=== PATIENT | female | born 1995 | race American Indian/Alaskan Native ===

== ENCOUNTER 2016-11-10 11:36 | Emergency (ER) | payer MEDICAID, OTHER ==
--- NOTE | 2016-11-10 12:00 | ED PDOC ---
Arrival/HPI - General Historian: Patient - History of Present Illness Time/Duration: 24 hours (Last night) Symptom Onset: Other Symptom Course: Other Activities at Onset: Emotional Upset (In heated arguement with ) Context: Home <Suman Bowie - Last Filed: 11/10/16 18:27> <Hitesh Kinney - Last Filed: 11/10/16 21:02> - General Chief Complaint: Medical Clearance Time Seen by Provider: 11/10/16 11:53 - History of Present Illness Narrative History of Present Illness (Text): 11/10/16 12:01 A 21 year old female, denies any past medical history, presents to the emergency department for expressed suicidal ideation from last night after a verbal altercation with her and the police were called. Her states that she allegedly wanted to hurt herself during the heated argument. The patient currently states that she has no suicidal or homicidal ideation. (Suman Bowie) Past Medical History - Provider Review Nursing Documentation Reviewed: Yes - Cardiac Hx Cardiac Disorders: No - Pulmonary Hx Respiratory Disorders: No - Neurological Hx Neurological Disorder: No - HEENT Hx HEENT Disorder: No - Renal Hx Renal Disorder: No - Endocrine/Metabolic Hx Endocrine Disorders: No - Hematological/Oncological Hx Blood Disorders: No - Integumentary Hx Dermatological Disorder: No - Musculoskeletal/Rheumatological Hx Musculoskeletal Disorders: No - Gastrointestinal Hx Gastrointestinal Disorders: No - Genitourinary/Gynecological Hx Genitourinary Disorders: No - Psychiatric Hx Psychophysiologic Disorder: Yes Hx Depression: Yes (no longer on meds) Hx Substance Use: No <Suman Bowie - Last Filed: 11/10/16 18:27> Family/Social History - Physician Review Nursing Documentation Reviewed: Yes Family/Social History: No Known Family HX, Unknown Family HX Smoking Status: Never Smoked Hx Alcohol Use: Yes Frequency of alcohol use: Socially Hx Substance Use: No <Suman Bowie - Last Filed: 11/10/16 18:27> Allergies/Home Meds <Suman Bowie - Last Filed: 11/10/16 18:27> <Hitesh Kinney - Last Filed: 11/10/16 21:02> Allergies/Adverse Reactions: Allergies No Known Allergies Allergy (Verified 11/10/16 11:41) Home Medications: Home Meds Medication Instructions Recorded Confirmed Levonorgestrel-Ethin Estradiol 1 tab PO DAILY 11/10/16 11/10/16 [Aviane 0.02 mg-0.1 mg] Review of Systems - Physician Review All systems were reviewed & negative as marked: Yes <JaneyhongSuman - Last Filed: 11/10/16 18:27> Physical Exam Vital Signs Reviewed: Yes Temperature: Afebrile Blood Pressure: Normal Pulse: Regular Respiratory Rate: Normal Appearance: Positive for: Well-Appearing, Non-Toxic, Comfortable Pain Distress: None Mental Status: Positive for: Alert and Oriented X 3 <Suman Bowie - Last Filed: 11/10/16 18:27> <Hitesh Kinney - Last Filed: 11/10/16 21:02> - Physical Exam Narrative Physical Exam (Text): 11/10/16 12:05 - Review of Systems Constitutional: Normal. absent: Fatigue, Weight Change, Fevers Eyes: Normal ENT: Normal Respiratory: Normal absent: SOB, Cough, Sputum Cardiovascular: Normal absent: Chest pain, Palpitations, Syncope Gastrointestinal: Normal absent: Abdominal pain, Diarrhea, Nausea, Vomiting Genitourinary: Normal. absent: Dysuria, Frequency, Hematuria Musculoskeletal: Normal. absent: Arthralgias, Back Pain, Neck Pain Skin: Normal Neurological: Normal absent: Focal Weakness Endocrine: Normal Hemo/Lymphatic: Normal Psychiatric: Normal - Physical exam Patient appears age appropriate, speaking full sentences without difficulty - Systems Exam Head: Present: Atraumatic, Normocephalic Pupils: Present: PERRL Extraocular Muscles: Present: EOMI Conjunctiva: Present: Normal Mouth: Present: Moist Mucous Membranes Neck: Present: Normal Range of Motion. No: MIDLINE TENDERNESS, Paraspinal Tenderness Respiratory/Chest: Present: Clear to Auscultation, Good Air Exchange. No: Respiratory Distress, Accessory Muscle Use, Tachypnic Cardiovascular: Present: Regular Rate and Rhythm, Normal S1, S2, Peripheral Pulses Present. No: Murmurs Abdomen: Present: Normal Bowel Sounds, No: Tenderness, Peritoneal Signs, Rebound, Guarding, Distention Back: Present: Normal Inspection. No: Midline Tenderness, Paraspinal Tenderness Upper Extremity: Present: Normal Inspection. No: Cyanosis, Edema Lower Extremity: Present: Normal Inspection. No: Edema Neurological: Present: GCS=15, Speech Normal, cranial nerves II through XII fully intact with no cerebellar abnormality, neuro-sensory fully intact. No focal neurological deficits. Skin: Present: Warm, Dry, Normal Color. No: Rashes Lymphatic: Present: OX3, NI, NC Psychiatric: Present: Alert, Oriented x 3, Normal Insight, Normal Concentration (Suman Bowie) Vital Signs Temp Pulse Resp BP Pulse Ox 11/10/16 14:03 98.3 F 78 16 107/59 L 100 11/10/16 11:42 99.5 F 88 20 107/73 99 Medical Decision Making - Lab Interpretations I have reviewed the lab results: Yes - RAD Interpretation Reference And Instruction Librarian: Radiologist <Suman Bowie - Last Filed: 11/10/16 18:27> <Hitesh Kinney - Last Filed: 11/10/16 21:02> ED Course and Treatment: 11/10/16 12:06 Impression: A 21 year old female who expressed suicidal ideation last night during a verbal altercation with her . Plan: -- Labs -- Xanax -- Urinalysis -- Reassess and disposition Prior Visits: Notes and results from previous visits were reviewed. Patient was last seen in the emergency department on 06/14/11 for knee injury. Progress Notes: 11/10/16 13:24 Patient was evaluated by [facility] screener and needs to be evaluated by [place] screener. 11/10/16 14:05 EKG: Ordered, reviewed, and independently interpreted the EKG. Rate : 76 BPM Rhythm : NSR Interpretation : No ST-segment elevations, normal intervals. Interpreted by me. 11/10/16 16:50 pt in no distress, denies complaints. 11/10/16 18:[address] Kinney in stable condition, pending [place] evaluation pt in no distress at this time UA with possible UTI pt denies any symptoms abx held Urine culture ordered (Suman Bowie) 11/10/16 20:55 Patient endorsed to me by Dr. Bowie for [facility] screen - she was seen by [facility] and accepted for [facility] screen. (Hitesh Kinney) - Lab Interpretations Lab Results: 11/10/16 12:55 11/10/16 12:55 Lab Results 11/10/16 12:55: Urine Opiates Screen Negative, Urine Methadone Screen Negative, Ur Barbiturates Screen Negative, Ur Phencyclidine Scrn Negative, Ur Amphetamines Screen Negative, U Benzodiazepines Scrn Negative, U Oth Cocaine Metabols Negative, U Cannabinoids Screen Negative 11/10/16 12:55: Alcohol, Quantitative < 10 11/10/16 12:55: Salicylates < 1 L, Acetaminophen < 10.0 L 11/10/16 12:55: Sodium 138, Potassium 3.8, Chloride 104, Carbon Dioxide 24, Anion Gap 14, BUN 7, Creatinine 0.6, Est GFR ( Amer) > 60, Est GFR (Non- Af Amer) > 60, Random Glucose 83, Calcium 9.2, Total Bilirubin 0.5, AST 22, ALT 22, Alkaline Phosphatase 76, Total Protein 7.1, Albumin 4.0, Globulin 3.2, Albumin/Globulin Ratio 1.3 11/10/16 12:55: Urine Color Yellow, Urine Appearance Sl cloudy, Urine pH 6.0, Ur Specific [place] >= 1.030, Urine Protein Trace H, Urine Glucose (UA) Negative , Urine Ketones Trace H, Urine Blood Large H, Urine Nitrate Negative, Urine Bilirubin Negative, Urine Urobilinogen 0.2, Ur Leukocyte Esterase Negative, Urine RBC Tntc, Urine WBC 0 - 2, Ur Epithelial Cells 1 - 3, Urine Bacteria Mod 11/10/16 12:55: WBC 8.8, RBC 4.33, Hgb 12.5, Hct 36.8, MCV 85.0, MCH 28.9, MCHC 34.0, RDW 13.3, Plt Count 212, MPV 9.9, Gran % 75.5 H, Lymph % (Auto) 18.8 L, [place] % (Auto) 5.4, Eos % (Auto) 0.1 L, Baso % (Auto) 0.2, Gran # 6.65 H, Lymph # 1.7, [place] # 0.5, Eos # 0.0, Baso # 0.02 - RAD Interpretation Narrative RAD Interpretations (Text): Title Attorney : Dr. Garay, Cornelio PARR Approver2 : Report Date : 11/10/2016 13:57:46 My Comment : HISTORY: med clearance COMPARISON: No prior. FINDINGS: LUNGS: No active pulmonary disease. PLEURA: No significant pleural effusion identified, no pneumothorax apparent. CARDIOVASCULAR: Normal. OSSEOUS STRUCTURES: No significant abnormalities. VISUALIZED UPPER ABDOMEN: Normal. OTHER FINDINGS: None. IMPRESSION: No active disease. (Suman Bowie) Radiology Orders: 11/10/16 13:18 CHEST PORTABLE [RAD] Stat - Medication Orders Current Medication Orders: Discontinued Medications Alprazolam (Xanax) 0.25 mg PO STAT STA PRN Reason: Protocol Stop: 11/10/16 12:01 Last Admin: 11/10/16 13:03 Dose: 0.25 mg - PA / PLY CUTTER / Resident Statement MD/DO has reviewed & agrees with the documentation as recorded. - Scribe Statement The provider has reviewed the documentation as recorded by the Scribe <Suman Bowie - Last Filed: 11/10/16 18:27> <Hitesh Kinney - Last Filed: 11/10/16 21:02> - Scribe Statement Rula Rios Provider Scribe Attestation: All medical record entries made by the Scribe were at my direction and personally dictated by me. I have reviewed the chart and agree that the record accurately reflects my personal performance of the history, physical exam, medical decision making, and the department course for this patient. I have also personally directed, reviewed, and agree with the discharge instructions and disposition.] (Suman Bowie) Disposition/Present on Arrival - Present on Arrival Any Indicators Present on Arrival: No History of DVT/PE: No History of Uncontrolled Diabetes: No Urinary Catheter: No History of Decub. Ulcer: No History Surgical Site Infection Following: None - Disposition Have Diagnosis and Disposition been Completed?: Yes <Suman Bowie - Last Filed: 11/10/16 18:27> - Disposition Disposition Time: 21:00 Patient Plan: Transfer To ([facility]) <Hitesh Kinney - Last Filed: 11/10/16 21:02> - Disposition Diagnosis: Medical clearance for psychiatric admission, Suicidal ideation Disposition: Transfer [facility] Patient Problems: Current Active Problems Problem Status Onset Medical clearance for psychiatric admission Acute Condition: STABLE Forms: [employer] (Faroese)
[2016-11-10 13:10] LABS: BASO # 0.02 K/mm3 (0.0-2.0); BASO % 0.2 % (0.0-3.0); EOS % 0.1 % (1.5-5.0); GRAN # 6.65 (1.4-6.5); GRAN % 75.5 % (50.0-68.0); HEMOGLOBIN 12.5 gm/dL (12.0-16.0); LYMPH # 1.7 (1.2-3.4); LYMPH % 18.8 % (22.0-35.0); MEAN CORPUSCULAR HEMOGLOBIN 28.9 pg (25.0-35.0); MEAN PLATELET VOLUME 9.9 fl (7.0-11.0); MONO # 0.5 (0.1-0.6); MONO % 5.4 % (1.0-6.0); PLATELET COUNT 212 10^3/uL (120.0-450.0); RBC 4.33 10^6/uL (3.5-6.1); RED CELL DISTRIBUTION WIDTH 13.3 % (11.5-14.5); URINE BILIRUBIN NEGATIVE (NEGATIVE); URINE BLOOD LARGE (NEGATIVE); URINE GLUCOSE (UA) NEGATIVE (NEGATIVE); URINE LEUKOCYTE ESTERASE NEGATIVE Leu/uL (NEGATIVE); URINE NITRATE NEGATIVE (NEGATIVE); URINE PROTEIN TRACE mg/dL (<30 mg/dL); URINE UROBILINOGEN 0.2 E.U./dL (<1 E.U./dL); WHITE BLOOD COUNT 8.8 10^3/ul (4.5-11.0)
[2016-11-10 13:14] LABS: URINE APPEARANCE SL CLOUDY (CLEAR); URINE COLOR YELLOW (YELLOW)
[2016-11-10 13:17] LABS: URINE BACTERIA MOD (NEG); URINE RBC TNTC /hpf (0-2); URINE WBC 0 - 2 /hpf (0-6)
[2016-11-10 13:22] LABS: ALB/GLOB RATIO 1.3 (1.1-1.8); ALT/SGPT 22 U/L (7-56); AST/SGOT 22 U/L (15-39); BLOOD UREA NITROGEN 7 mg/dL (7-21); CALCIUM 9.2 mg/dL (8.4-10.5); GFR AFRICAN-AMERICAN > 60; GFR NON-AFRICAN AMERICAN > 60
[2016-11-10 13:31] LABS: BARBITURATES, UR NEGATIVE (NEGATIVE); BENZODIAZEPINES, UR NEGATIVE (NEGATIVE); OPIATES, UR NEGATIVE (NEGATIVE); PHENCYCLIDINE, UR NEGATIVE (NEGATIVE)
[2016-11-10 13:34] LABS: SALICYLATE < 1 mg/dL (2.0-20.0)
[2016-11-10 13:37] LABS: ACETAMINOPHEN < 10.0 ug/ml (10.0-20.0)
--- NOTE | 2016-11-10 13:59 | RAD ---
HISTORY: med clearance COMPARISON: No prior. FINDINGS: LUNGS: No active pulmonary disease. PLEURA: No significant pleural effusion identified, no pneumothorax apparent. CARDIOVASCULAR: Normal. OSSEOUS STRUCTURES: No significant abnormalities. VISUALIZED UPPER ABDOMEN: Normal. OTHER FINDINGS: None. IMPRESSION: No active disease.
--- NOTE | 2016-11-11 00:15 | ED PDOC ---
Physical Exam Vital Signs Reviewed: Yes Vital Signs Temp Pulse Resp BP Pulse Ox 11/10/16 23:37 98.4 F 72 16 97/57 L 100 11/10/16 14:03 98.3 F 78 16 107/59 L 100 11/10/16 11:42 99.5 F 88 20 107/73 99 Temperature: Afebrile Blood Pressure: Normal Pulse: Regular Respiratory Rate: Normal Appearance: Positive for: Well-Appearing, Non-Toxic, Comfortable Pain Distress: None Mental Status: Positive for: Alert and Oriented X 3 Medical Decision Making ED Course and Treatment: 11/10/16 23:00 Case endorsed to me by Dr. Kinney, pending [facility] bed availability, pt accepted on transfer. 11/11/16 07:00 Pt in stable condition. Case endorsed to Dr. Duncan, pending [facility] bed availability for transfer. - Lab Interpretations Lab Results: 11/10/16 12:55 11/10/16 12:55 Lab Results 11/10/16 12:55: Urine Opiates Screen Negative, Urine Methadone Screen Negative, Ur Barbiturates Screen Negative, Ur Phencyclidine Scrn Negative, Ur Amphetamines Screen Negative, U Benzodiazepines Scrn Negative, U Oth Cocaine Metabols Negative, U Cannabinoids Screen Negative 11/10/16 12:55: Alcohol, Quantitative < 10 11/10/16 12:55: Salicylates < 1 L, Acetaminophen < 10.0 L 11/10/16 12:55: Sodium 138, Potassium 3.8, Chloride 104, Carbon Dioxide 24, Anion Gap 14, BUN 7, Creatinine 0.6, Est GFR ( Amer) > 60, Est GFR (Non- Af Amer) > 60, Random Glucose 83, Calcium 9.2, Total Bilirubin 0.5, AST 22, ALT 22, Alkaline Phosphatase 76, Total Protein 7.1, Albumin 4.0, Globulin 3.2, Albumin/Globulin Ratio 1.3 11/10/16 12:55: Urine Color Yellow, Urine Appearance Sl cloudy, Urine pH 6.0, Ur Specific [place] >= 1.030, Urine Protein Trace H, Urine Glucose (UA) Negative , Urine Ketones Trace H, Urine Blood Large H, Urine Nitrate Negative, Urine Bilirubin Negative, Urine Urobilinogen 0.2, Ur Leukocyte Esterase Negative, Urine RBC Tntc, Urine WBC 0 - 2, Ur Epithelial Cells 1 - 3, Urine Bacteria Mod 11/10/16 12:55: WBC 8.8, RBC 4.33, Hgb 12.5, Hct 36.8, MCV 85.0, MCH 28.9, MCHC 34.0, RDW 13.3, Plt Count 212, MPV 9.9, Gran % 75.5 H, Lymph % (Auto) 18.8 L, [place] % (Auto) 5.4, Eos % (Auto) 0.1 L, Baso % (Auto) 0.2, Gran # 6.65 H, Lymph # 1.7, [place] # 0.5, Eos # 0.0, Baso # 0.02 - RAD Interpretation Radiology Orders: 11/10/16 13:18 CHEST PORTABLE [RAD] Stat - Medication Orders Current Medication Orders: Discontinued Medications Alprazolam (Xanax) 0.25 mg PO STAT STA PRN Reason: Protocol Stop: 11/10/16 12:01 Last Admin: 11/10/16 13:03 Dose: 0.25 mg Disposition/Present on Arrival - Present on Arrival Any Indicators Present on Arrival: No History of DVT/PE: No History of Uncontrolled Diabetes: No Urinary Catheter: No History of Decub. Ulcer: No History Surgical Site Infection Following: None - Disposition Have Diagnosis and Disposition been Completed?: Yes Diagnosis: Medical clearance for psychiatric admission, Suicidal ideation Disposition: Trans to Other Acute Care Hosp Disposition Time: 07:00 Condition: STABLE Forms: [employer] (Yoruba)
--- NOTE | 2016-11-11 07:33 | ED PDOC ---
Physical Exam Vital Signs Reviewed: Yes Vital Signs Temp Pulse Resp BP Pulse Ox 11/11/16 07:31 98.2 F 62 16 100/41 L 100 11/11/16 05:30 98.2 F 62 16 98/56 L 100 11/11/16 03:40 98.3 F 68 16 100/56 L 100 11/11/16 01:40 98.3 F 70 16 100/58 L 100 11/10/16 23:37 98.4 F 72 16 97/57 L 100 11/10/16 14:03 98.3 F 78 16 107/59 L 100 11/10/16 11:42 99.5 F 88 20 107/73 99 Temperature: Afebrile Blood Pressure: Normal Pulse: Regular Respiratory Rate: Normal Medical Decision Making ED Course and Treatment: 11/11/16 07:32 Case endorsed to me by Dr. Cerna, pending [facility] bed availability for transfer. 11/11/16 21:01 ed course during day, uneventful, pending bed avail at [facility] endorsed to parts clerk plant maintenance - Lab Interpretations Lab Results: 11/10/16 12:55 11/10/16 12:55 Lab Results 11/10/16 12:55: Urine Opiates Screen Negative, Urine Methadone Screen Negative, Ur Barbiturates Screen Negative, Ur Phencyclidine Scrn Negative, Ur Amphetamines Screen Negative, U Benzodiazepines Scrn Negative, U Oth Cocaine Metabols Negative, U Cannabinoids Screen Negative 11/10/16 12:55: Alcohol, Quantitative < 10 11/10/16 12:55: Salicylates < 1 L, Acetaminophen < 10.0 L 11/10/16 12:55: Sodium 138, Potassium 3.8, Chloride 104, Carbon Dioxide 24, Anion Gap 14, BUN 7, Creatinine 0.6, Est GFR ( Amer) > 60, Est GFR (Non- Af Amer) > 60, Random Glucose 83, Calcium 9.2, Total Bilirubin 0.5, AST 22, ALT 22, Alkaline Phosphatase 76, Total Protein 7.1, Albumin 4.0, Globulin 3.2, Albumin/Globulin Ratio 1.3 11/10/16 12:55: Urine Color Yellow, Urine Appearance Sl cloudy, Urine pH 6.0, Ur Specific [place] >= 1.030, Urine Protein Trace H, Urine Glucose (UA) Negative , Urine Ketones Trace H, Urine Blood Large H, Urine Nitrate Negative, Urine Bilirubin Negative, Urine Urobilinogen 0.2, Ur Leukocyte Esterase Negative, Urine RBC Tntc, Urine WBC 0 - 2, Ur Epithelial Cells 1 - 3, Urine Bacteria Mod 11/10/16 12:55: WBC 8.8, RBC 4.33, Hgb 12.5, Hct 36.8, MCV 85.0, MCH 28.9, MCHC 34.0, RDW 13.3, Plt Count 212, MPV 9.9, Gran % 75.5 H, Lymph % (Auto) 18.8 L, [place] % (Auto) 5.4, Eos % (Auto) 0.1 L, Baso % (Auto) 0.2, Gran # 6.65 H, Lymph # 1.7, [place] # 0.5, Eos # 0.0, Baso # 0.02 - RAD Interpretation Radiology Orders: 11/10/16 13:18 CHEST PORTABLE [RAD] Stat - Medication Orders Current Medication Orders: Discontinued Medications Alprazolam (Xanax) 0.25 mg PO STAT STA PRN Reason: Protocol Stop: 11/10/16 12:01 Last Admin: 11/10/16 13:03 Dose: 0.25 mg Disposition/Present on Arrival - Present on Arrival Any Indicators Present on Arrival: No History of DVT/PE: No History of Uncontrolled Diabetes: No Urinary Catheter: No History of Decub. Ulcer: No History Surgical Site Infection Following: None - Disposition Have Diagnosis and Disposition been Completed?: Yes Diagnosis: Medical clearance for psychiatric admission, Suicidal ideation Disposition: Transfer [facility] Disposition Time: 07:00 Patient Problems: Current Active Problems Problem Status Onset Medical clearance for psychiatric admission Acute Suicidal ideation Acute Condition: STABLE Forms: [employer] (Yakut)
--- NOTE | 2016-11-11 20:48 | ED PDOC ---
Physical Exam Vital Signs Reviewed: Yes Vital Signs Temp Pulse Resp BP Pulse Ox 11/12/16 03:00 77 18 102/76 100 11/11/16 23:00 78 18 118/64 100 11/11/16 19:00 98.4 F 76 18 112/52 L 100 11/11/16 17:00 99.0 F 77 17 99/60 L 99 11/11/16 13:00 98.1 F 86 16 110/68 99 11/11/16 11:00 98.5 F 86 17 111/57 L 98 11/11/16 09:00 97.5 F L 86 17 111/64 99 11/11/16 07:31 98.2 F 62 16 100/41 L 100 11/11/16 05:30 98.2 F 62 16 98/56 L 100 11/11/16 03:40 98.3 F 68 16 100/56 L 100 11/11/16 01:40 98.3 F 70 16 100/58 L 100 11/10/16 23:37 98.4 F 72 16 97/57 L 100 11/10/16 14:03 98.3 F 78 16 107/59 L 100 11/10/16 11:42 99.5 F 88 20 107/73 99 Temperature: Afebrile Blood Pressure: Normal Pulse: Regular Respiratory Rate: Normal Appearance: Positive for: Well-Appearing, Non-Toxic, Comfortable Pain Distress: None Mental Status: Positive for: Alert and Oriented X 3 Medical Decision Making ED Course and Treatment: 11/11/16 19:00 Case signed out to me by Dr. Duncan, Pending [facility] bed availability for transfer. 11/12/16 07:00 Patient in stable condition. Case signed out to pending [facility] bed availability for psych transfer. - Lab Interpretations Lab Results: 11/10/16 12:55 11/10/16 12:55 Lab Results 11/10/16 12:55: Urine Opiates Screen Negative, Urine Methadone Screen Negative, Ur Barbiturates Screen Negative, Ur Phencyclidine Scrn Negative, Ur Amphetamines Screen Negative, U Benzodiazepines Scrn Negative, U Oth Cocaine Metabols Negative, U Cannabinoids Screen Negative 11/10/16 12:55: Alcohol, Quantitative < 10 11/10/16 12:55: Salicylates < 1 L, Acetaminophen < 10.0 L 11/10/16 12:55: Sodium 138, Potassium 3.8, Chloride 104, Carbon Dioxide 24, Anion Gap 14, BUN 7, Creatinine 0.6, Est GFR ( Amer) > 60, Est GFR (Non- Af Amer) > 60, Random Glucose 83, Calcium 9.2, Total Bilirubin 0.5, AST 22, ALT 22, Alkaline Phosphatase 76, Total Protein 7.1, Albumin 4.0, Globulin 3.2, Albumin/Globulin Ratio 1.3 11/10/16 12:55: Urine Color Yellow, Urine Appearance Sl cloudy, Urine pH 6.0, Ur Specific [place] >= 1.030, Urine Protein Trace H, Urine Glucose (UA) Negative , Urine Ketones Trace H, Urine Blood Large H, Urine Nitrate Negative, Urine Bilirubin Negative, Urine Urobilinogen 0.2, Ur Leukocyte Esterase Negative, Urine RBC Tntc, Urine WBC 0 - 2, Ur Epithelial Cells 1 - 3, Urine Bacteria Mod 11/10/16 12:55: WBC 8.8, RBC 4.33, Hgb 12.5, Hct 36.8, MCV 85.0, MCH 28.9, MCHC 34.0, RDW 13.3, Plt Count 212, MPV 9.9, Gran % 75.5 H, Lymph % (Auto) 18.8 L, [place] % (Auto) 5.4, Eos % (Auto) 0.1 L, Baso % (Auto) 0.2, Gran # 6.65 H, Lymph # 1.7, [place] # 0.5, Eos # 0.0, Baso # 0.02 - RAD Interpretation Radiology Orders: 11/10/16 13:18 CHEST PORTABLE [RAD] Stat - Medication Orders Current Medication Orders: Discontinued Medications Alprazolam (Xanax) 0.25 mg PO STAT STA PRN Reason: Protocol Stop: 11/10/16 12:01 Last Admin: 11/10/16 13:03 Dose: 0.25 mg - Scribe Statement The provider has reviewed the documentation as recorded by the Eloyibe Genesis Garcia Provider Attestation: Provider Scribe Attestation: All medical record entries made by the Eloyibanabela were at my direction and personally dictated by me. I have reviewed the chart and agree that the record accurately reflects my personal performance of the history, physical exam, medical decision making, and the department course for this patient. I have also personally directed, reviewed, and agree with the discharge instructions and disposition. Disposition/Present on Arrival - Present on Arrival Any Indicators Present on Arrival: No History of DVT/PE: No History of Uncontrolled Diabetes: No Urinary Catheter: No History of Decub. Ulcer: No History Surgical Site Infection Following: None - Disposition Have Diagnosis and Disposition been Completed?: Yes Diagnosis: Medical clearance for psychiatric admission, Suicidal ideation Disposition: Trans to Other Acute Care Hosp Disposition Time: 07:00 Condition: STABLE Forms: [employer] (Bolivian)
[2016-11-12 02:22] VITALS: RESP 18
--- NOTE | 2016-11-12 07:07 | ED PDOC ---
Physical Exam Vital Signs Temp Pulse Resp BP Pulse Ox 11/12/16 03:00 77 18 102/76 100 11/11/16 23:00 78 18 118/64 100 11/11/16 19:00 98.4 F 76 18 112/52 L 100 11/11/16 17:00 99.0 F 77 17 99/60 L 99 11/11/16 13:00 98.1 F 86 16 110/68 99 11/11/16 11:00 98.5 F 86 17 111/57 L 98 11/11/16 09:00 97.5 F L 86 17 111/64 99 11/11/16 07:31 98.2 F 62 16 100/41 L 100 11/11/16 05:30 98.2 F 62 16 98/56 L 100 11/11/16 03:40 98.3 F 68 16 100/56 L 100 11/11/16 01:40 98.3 F 70 16 100/58 L 100 11/10/16 23:37 98.4 F 72 16 97/57 L 100 11/10/16 14:03 98.3 F 78 16 107/59 L 100 11/10/16 11:42 99.5 F 88 20 107/73 99 Medical Decision Making ED Course and Treatment: 11/12/16 07:00 Patient signed out to me by Dr. Cerna. Accepted to [facility], pending bed. pt in no distress, denies complaints. - Lab Interpretations Lab Results: 11/10/16 12:55 11/10/16 12:55 Lab Results 11/10/16 12:55: Urine Opiates Screen Negative, Urine Methadone Screen Negative, Ur Barbiturates Screen Negative, Ur Phencyclidine Scrn Negative, Ur Amphetamines Screen Negative, U Benzodiazepines Scrn Negative, U Oth Cocaine Metabols Negative, U Cannabinoids Screen Negative 11/10/16 12:55: Alcohol, Quantitative < 10 11/10/16 12:55: Salicylates < 1 L, Acetaminophen < 10.0 L 11/10/16 12:55: Sodium 138, Potassium 3.8, Chloride 104, Carbon Dioxide 24, Anion Gap 14, BUN 7, Creatinine 0.6, Est GFR ( Amer) > 60, Est GFR (Non- Af Amer) > 60, Random Glucose 83, Calcium 9.2, Total Bilirubin 0.5, AST 22, ALT 22, Alkaline Phosphatase 76, Total Protein 7.1, Albumin 4.0, Globulin 3.2, Albumin/Globulin Ratio 1.3 11/10/16 12:55: Urine Color Yellow, Urine Appearance Sl cloudy, Urine pH 6.0, Ur Specific [place] >= 1.030, Urine Protein Trace H, Urine Glucose (UA) Negative , Urine Ketones Trace H, Urine Blood Large H, Urine Nitrate Negative, Urine Bilirubin Negative, Urine Urobilinogen 0.2, Ur Leukocyte Esterase Negative, Urine RBC Tntc, Urine WBC 0 - 2, Ur Epithelial Cells 1 - 3, Urine Bacteria Mod 11/10/16 12:55: WBC 8.8, RBC 4.33, Hgb 12.5, Hct 36.8, MCV 85.0, MCH 28.9, MCHC 34.0, RDW 13.3, Plt Count 212, MPV 9.9, Gran % 75.5 H, Lymph % (Auto) 18.8 L, [place] % (Auto) 5.4, Eos % (Auto) 0.1 L, Baso % (Auto) 0.2, Gran # 6.65 H, Lymph # 1.7, [place] # 0.5, Eos # 0.0, Baso # 0.02 - RAD Interpretation Radiology Orders: 11/10/16 13:18 CHEST PORTABLE [RAD] Stat - Medication Orders Current Medication Orders: Discontinued Medications Alprazolam (Xanax) 0.25 mg PO STAT STA PRN Reason: Protocol Stop: 11/10/16 12:01 Last Admin: 11/10/16 13:03 Dose: 0.25 mg - Scribe Statement The provider has reviewed the documentation as recorded by the Marbella Munoz Provider Scribe Attestation: All medical record entries made by the Marbella were at my direction and personally dictated by me. I have reviewed the chart and agree that the record accurately reflects my personal performance of the history, physical exam, medical decision making, and the department course for this patient. I have also personally directed, reviewed, and agree with the discharge instructions and disposition. Disposition/Present on Arrival - Present on Arrival Any Indicators Present on Arrival: No History of DVT/PE: No History of Uncontrolled Diabetes: No Urinary Catheter: No History of Decub. Ulcer: No History Surgical Site Infection Following: None - Disposition Diagnosis: Medical clearance for psychiatric admission, Suicidal ideation Disposition: Transfer [facility] Patient Problems: Current Active Problems Problem Status Onset Medical clearance for psychiatric admission Acute Suicidal ideation Acute Condition: STABLE Forms: [employer] (Gabonese)
--- NOTE | 2016-11-12 09:29 | CARD ---
APPROVED REPORT EKG Measurement Heart [id number] <Conclusion> Normal sinus rhythm with sinus arrhythmia Normal ECG
[2016-11-12 13:46] VITALS: BP 104/54; PULSE 64; TEMP 97.8; O2SAT 98
--- NOTE | 2016-11-12 23:23 | CON ---
DATE: 11/12/2016 HISTORY OF PRESENT ILLNESS: The patient is a 21-year-old female, not known triggers, psychiatric history. The patient was brought in for evaluation of suicidal ideation. The patient was screened. At the present moment, the patient is waiting for bed to be available at [facility], the patient was accepted there. The patient was seen briefly today. This financial underwriter explained the treatment plan for the patient and that she is waiting for bed to be available. The patient presented to have flat affect, her voice apathetic. The patient was not willing to talk to this financial underwriter. As per nursing report, the patient still appears to be depressed, at times anxious, but no behavioral disturbances. MEDICATIONS: Reviewed. This financial underwriter will implement trazodone as needed for insomnia and Ativan 0.5 mg 3 times a day as needed for anxiety. PHYSICAL EXAMINATION VITAL SIGNS: Reviewed. MENTAL STATUS EXAMINATION: The patient presented to be sleepy, easily arousable, flat affect. The patient was not willing to talk to his financial underwriter. Said that she is tired of waiting. Speech was monotonic of volume. Thought process seems to be goal directed. Thought content, the patient denied visual, auditory or tactile hallucinations. Denied paranoid ideations. The patient denied thoughts of harming others. The patient stayed quiet when I asked if she wants to kill herself. Insight and judgment are still limited. Impulses are not predictable. LABORATORY DATA: Labs reviewed. Toxicology reviewed. IMPRESSION: Rule out major depressive disorder, rule out adjustment disorder with depressed and anxious mood. PLAN: Continue current management. Continue observation. The patient needs further evaluation and stabilization. The patient was accepted by [facility]. The patient currently is waiting for bed to be available. Thank you very much allowing me to participate in the care of your patient. We will follow up and advise accordingly. Cee Glover MD
== END 2016-11-12 13:59 | disposition short-term general hospital (02) ==
LOC: ED 11:36
DX: R45.851 Suicidal ideations (principal)
CPT/HCPCS: 71010; 80053; 81001; 85025; 87086; 90791; 93005; 99285; G0480

== ENCOUNTER 2017-09-13 07:28 | Emergency (ER) | payer MEDICAID ==
[2017-09-13 07:31] VITALS: BMI 20.9
[2017-09-13] MEDS ORDERED: TDAP Vaccine 0.5 mL Syr IM ONE (09:06)
--- NOTE | 2017-09-13 09:06 | ED PDOC ---
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 states since her last revision of the umbilical piercing ~ 1 year ago, she has noted constant clear-like fluid drainage from the piercing site pt is here for further eval pt's without other complaints PCP: NONE Time/Duration: 1 week Symptom Onset: Gradual Symptom Course: Worsening Activities at Onset: Rest Context: Home Past Medical History - Provider Review Nursing Documentation Reviewed: Yes - Travel History Have you recently traveled outside [place] w/in the past 3 mons?: No - Past History Past History: No Previous - Infectious Disease Hx of Infectious Diseases: None - Reproductive Menopause: No Currently : No - Cardiac Hx Cardiac Disorders: No - Pulmonary Hx Respiratory Disorders: No - Neurological Hx Neurological Disorder: No - HEENT Hx HEENT Disorder: No - Renal Hx Renal Disorder: No - Endocrine/Metabolic Hx Endocrine Disorders: No - Hematological/Oncological Hx Blood Disorders: No - Integumentary Hx Dermatological Disorder: No - Musculoskeletal/Rheumatological Hx Musculoskeletal Disorders: No - Gastrointestinal Hx Gastrointestinal Disorders: No - Genitourinary/Gynecological Hx Genitourinary Disorders: No - Psychiatric Hx Psychophysiologic Disorder: Yes Hx Depression: Yes (no longer on meds) Hx Substance Use: No - Anesthesia Hx Anesthesia: No Family/Social History - Physician Review Nursing Documentation Reviewed: Yes Family/Social History: No Known Family HX Smoking Status: Never Smoked Hx Alcohol Use: Yes Hx Substance Use: No Hx Substance Use Treatment: No Allergies/Home Meds Allergies/Adverse Reactions: Allergies No Known Allergies Allergy (Verified 02/10/17 11:26) Review of Systems - Review of Systems Constitutional: Normal Eyes: Normal ENT: Normal Respiratory: Normal Cardiovascular: Normal Gastrointestinal: Normal Genitourinary Female: Normal Musculoskeletal: Normal Skin: Other (umbilical wound infection/infected piercing) Neurological: Normal Endocrine: Normal Hemo/Lymphatic: Normal Psychiatric: Normal Physical Exam - Physical Exam Narrative Physical Exam (Text): 09/13/17 0900 General: alert/awake, GCS = 15, oriented x 3, resting in bed, mildly uncomfortable, cooperative, interactive; NAD Head: NC/AT EYE: PERRLA, EOMI, sclera anicteric, no nystagmus, no photophobia; visual field intact b/l; wearing eyeglasses Facial: WNL Oral: uvula/tongue are midline, no exudate/lesions, no drooling/stridor, no dysphonia; intact dentitions NECK: intact ROM, no midline tenderness, no nuchal rigidity, no meningeal signs ; no step off Chest: CTA b/l, no w/r/r; no tachypenia, no accessory muscle use noted Chest Wall: no crepitus, no lesions, no gross deformities, no focal tenderness Cardiac: +S1, +S2, no m/r/r, no tachycardia Abdominal: +BS, soft/nd/nt, well nourished patient; no masses/rebound/guarding/ rigidity; no holden's sign, no mcburney's point tenderness; umbilical piercing site noted scant bloody/light yellow discharge, not grossly expressible; NO skin induration/ulceration/lesions noted on exam Extremities: intact ROM, strength 5/5 grossly intact in all limbs, neurovasc intact b/l; + ambulatory; reflex +2/2; no pitting edema b/l, no osmin's sign b/l BACK: no step off, no midline tenderness, NO crepitus, no gross deformities noted; Intact ROM; no CVAT b/l SKIN: cap refill < 1 sec, no ulcerations, no petechiae, no rashes; as described above skin wound (umbilicus) NEURO: CNII-XII WNL, no facial asymmetries, no slurr speech, oriented x 3 Psych: normal insight, normal affect; follows command with ease Vital Signs Reviewed: Yes Vital Signs Temp Pulse Resp BP Pulse Ox 09/13/17 10:40 98 F 85 20 123/52 L 99 09/13/17 10:01 98 F 75 19 121/72 97 09/13/17 07:56 98.9 F 68 18 118/77 98 Temperature: Afebrile Blood Pressure: Normal Pulse: Regular Respiratory Rate: Normal Appearance: Positive for: Well-Appearing, Non-Toxic. No: Ill-Appearing, Unkept Pain Distress: None Mental Status: Positive for: Alert and Oriented X 3 - Systems Exam Head: Present: Atraumatic, Normocephalic Medical Decision Making ED Course and Treatment: 09/13/17 0855 Impression: umbilical wound/piercing infection i have consider all the differential diagnosis regarding pt's chief medical complaints/clinical findings, including but are not limited to: umbilical wound/ piercing infection A/P: umbilical wound/piercing infection - wound care - supportive care - observe/reevaluation 09/13/17 0930 pt is doing well pt is comfortable pt is encouraged to remove the piercing for proper wound healing pt is agreeable and wants to do so at home pt is awaiting to receive her medications and wound care 1015 pt remained comfortable pt is not in any distress pt is made aware of her medical results pt is encouraged wound care pt is encouraged fluids pt will f/u as directed pt will be discharged home Re-evaluation Time: 10:33 Reassessment Condition: Improving,but remains with symptoms - Medication Orders Current Medication Orders: Discontinued Medications Clindamycin HCl (Cleocin) 300 mg PO STAT STA PRN Reason: Protocol Stop: 09/13/17 09:07 Last Admin: 09/13/17 09:27 Dose: 300 mg Tetanus/Reduced Diphtheria/Acell Pertussis (Boostrix Vaccine Inj) 0.5 ml IM .ONCE ONE Stop: 09/13/17 09:07 Last Admin: 09/13/17 09:17 Dose: MAR Immunization Data Document 09/13/17 09:17 [facility] (Rec: 09/13/17 09:18 [facility] [id number]) Immunization Data Vaccine Information Sheet Given No: refused Vaccine Information Sheet Given Date 09/13/17 Associated Event Comment pt aware of her vaccine tetanus shot within 5 years Immunization Registry Document 09/13/17 09:17 [facility] (Rec: 09/13/17 09:18 [facility] [id number]) Immunization Registry Consent Date 09/13/17 Disposition/Present on Arrival - Present on Arrival Any Indicators Present on Arrival: No History of DVT/PE: No History of Uncontrolled Diabetes: No Urinary Catheter: No History of Decub. Ulcer: No History Surgical Site Infection Following: None - Disposition Have Diagnosis and Disposition been Completed?: Yes Diagnosis: Infected pierced umbilicus Disposition: HOME/ ROUTINE Disposition Time: 10:29 Patient Plan: Discharge Condition: STABLE Discharge Instructions (ExitCare): Wound Infection Print Language: STATELESS Additional Instructions: Make sure to see your doctor in 1-2 days DRINK PLENTY OF FLUIDS take your medications as prescribed DONT SMOKE IF YOU SMOKE KEEP WOUND CLEAN AND DRY DONT PUT THE UMBILICAL PIERCING in the wound RETURN TO ED IF worse pain, cant breath, persistent vomiting, high fever >101- 102 for hours, altered behavior, slurr speech, facial changes, focal weakness ( arm/leg or both), unable to urinate, heavy/persistent bleeding, passing out, chest pain, or other medical emergencies Prescriptions: Clindamycin [Cleocin] 300 mg PO QID #27 cap Referrals: [facility] [place] [Outside] - Follow up with primary [facility] [Outside] - Follow up with primary [facility] [Outside] - Follow up with primary [facility] [Outside] - Follow up with primary Rigoberto Umanzor MD [Staff Provider] - Follow up with primary Forms: [facility] (Grenadian)
[2017-09-13 10:02] VITALS: TEMP 98
[2017-09-13 10:41] VITALS: BP 123/52; PULSE 85; RESP 20; O2SAT 99
== END 2017-09-13 10:40 | disposition home or self-care (01) ==
LOC: ED 07:28
DX: L08.9 Local infection of the skin and subcutaneous tissue, unspecified (principal)

== ENCOUNTER 2018-05-28 14:03 | Emergency (ER) | payer MEDICAID, OTHER ==
[2018-05-28 14:04] VITALS: BMI 20.9
[2018-05-28 15:01] VITALS: BP 110/82; PULSE 77; RESP 18; TEMP 98; O2SAT 99
[2018-05-28] MEDS ORDERED: TDAP Vaccine 0.5 mL Syr IM ONE (15:12)
--- NOTE | 2018-05-28 15:42 | ED PDOC ---
Arrival/HPI - General Chief Complaint: Abnormal Skin Integrity Time Seen by Provider: 05/28/18 14:57 Historian: Patient - History of Present Illness Narrative History of Present Illness (Text): 05/28/18 15:44 22 year old female, with no significant past medical history, presents to the ED for evaluation of a laceration sustained to left eyebrow prior to arrival. Patient states she was standing next to a friend who was playing golf and accidentally hit her left side of her head while swinging the golf club. Patient denies any head injury or loss of consciousness at the time. Patient denies any fevers, chills, headache, dizziness, chest pain, shortness of breath, dyspnea on exertion, cough, abdominal pain, nausea, vomiting, diarrhea, back pain, neck pain, or any other complaints. Patient informs up to date tetanus as of last year. Time/Duration: Prior to Arrival Symptom Onset: Gradual Symptom Course: Unchanged Activities at Onset: Light Past Medical History - Provider Review Nursing Documentation Reviewed: Yes - Past History Past History: No Previous - Infectious Disease Hx of Infectious Diseases: None - Reproductive Menopause: No - Cardiac Hx Cardiac Disorders: No - Pulmonary Hx Respiratory Disorders: No - Neurological Hx Neurological Disorder: No - HEENT Hx HEENT Disorder: No - Renal Hx Renal Disorder: No - Endocrine/Metabolic Hx Endocrine Disorders: No - Hematological/Oncological Hx Blood Disorders: No - Integumentary Hx Dermatological Disorder: No - Musculoskeletal/Rheumatological Hx Musculoskeletal Disorders: No - Gastrointestinal Hx Gastrointestinal Disorders: No - Genitourinary/Gynecological Hx Genitourinary Disorders: No - Psychiatric Hx Psychophysiologic Disorder: Yes Hx Depression: Yes (no longer on meds) Hx Substance Use: No - Anesthesia Hx Anesthesia: No Family/Social History - Physician Review Nursing Documentation Reviewed: Yes Family/Social History: Unknown Family HX Smoking Status: Never Smoked Hx Alcohol Use: Yes Hx Substance Use: No Hx Substance Use Treatment: No Allergies/Home Meds Allergies/Adverse Reactions: Allergies No Known Allergies Allergy (Verified 02/10/17 11:26) Review of Systems - Physician Review All systems were reviewed & negative as marked: Yes - Review of Systems Constitutional: absent: Fevers Respiratory: absent: SOB, Cough Cardiovascular: absent: Chest Pain Gastrointestinal: absent: Abdominal Pain, Diarrhea, Nausea, Vomiting Genitourinary Female: absent: Dysuria, Urine Output Changes Musculoskeletal: absent: Back Pain, Neck Pain Skin: Laceration (Left eyebrow). absent: Rash Neurological: absent: Headache, Dizziness Psychiatric: absent: Anxiety Physical Exam Vital Signs Reviewed: Yes Vital Signs Temp Pulse Resp BP Pulse Ox 05/28/18 14:57 98 F 77 18 110/82 99 Temperature: Afebrile Blood Pressure: Normal Pulse: Regular Respiratory Rate: Normal Appearance: Positive for: Well-Appearing, Non-Toxic, Comfortable Pain Distress: None Mental Status: Positive for: Alert and Oriented X 3 - Systems Exam Head: Present: Atraumatic, Normocephalic Pupils: Present: PERRL Extroacular Muscles: Present: EOMI Conjunctiva: Present: Normal Mouth: Present: Moist Mucous Membranes Neck: Present: Normal Range of Motion. No: MIDLINE TENDERNESS, Paraspinal Tend erness Respiratory/Chest: Present: Clear to Auscultation, Good Air Exchange. No: Respiratory Distress, Accessory Muscle Use Cardiovascular: Present: Regular Rate and Rhythm, Normal S1, S2. No: Murmurs Back: Present: Normal Inspection. No: Midline Tenderness, Paraspinal Tenderness Upper Extremity: Present: Normal Inspection. No: Cyanosis, Edema Lower Extremity: Present: Normal Inspection. No: Edema Neurological: Present: GCS=15, CN II-XII Intact, Speech Normal Skin: Present: Warm, Dry, Normal Color, Laceration (3cm deep linear laceration to left eyebrow). No: Rashes Psychiatric: Present: Alert, Oriented x 3, Normal Insight, Normal Concentration Medical Decision Making ED Course and Treatment: 05/28/18 15:48 Impression: 22 year old female presents to the ED for evaluation of laceration sustained to left eyebrow. Differential Diagnosis included but are not limited to: -- Laceration Plan: -- Motrin -- Laceration Repair -- Reassess and disposition Prior Visits: Notes and results from previous visits were reviewed. Progress Notes: - Medication Orders Current Medication Orders: Discontinued Medications Tetanus/Reduced Diphtheria/Acell Pertussis (Boostrix Vaccine Inj) 0.5 ml IM .ONCE ONE Stop: 05/28/18 15:13 - Procedure PROCEDURE NOTE (Text): 05/28/18 15:56 PROCEDURE: LACERATION REPAIR Performed by the emergency provider Location: Left eyebrow Length: 3 cm Description: linear laceration with clean wound edges, no foreign bodies Distal CMS: Normal. No deficits. Neurovascularly intact. Anesthesia: Lidocaine 1% Preparation: The wound was cleaned with NS and [place]. The area was prepped and draped in the usual sterile fashion. Exploration: The wound was explored and no foreign bodies were found. Procedure: The wound was closed with nylon. There was good approximation. In total, 12 stitches were used. Post-Procedure: Good closure and hemostasis. The patient tolerated the procedure well and there were no complications. CSM remains intact. Post procedure dressing applied. - Scribe Statement The provider has reviewed the documentation as recorded by the Scribe Miquel Balderas. All medical record entries made by the Scribe were at my direction and personally dictated by me. I have reviewed the chart and agree that the record accurately reflects my personal performance of the history, physical exam, medical decision making, and the department course for this patient. I have also personally directed, reviewed, and agree with the discharge instructions and disposition. Disposition/Present on Arrival - Present on Arrival Any Indicators Present on Arrival: No History of DVT/PE: No History of Uncontrolled Diabetes: No Urinary Catheter: No History of Decub. Ulcer: No History Surgical Site Infection Following: None - Disposition Have Diagnosis and Disposition been Completed?: Yes Diagnosis: Eyebrow laceration Disposition: HOME/ ROUTINE Disposition Time: 16:33 Patient Plan: Discharge Discharge Instructions (ExitCare): Laceration Repair With Stitches (DC) Additional Instructions: All medical record entries made by the Scribe were at my direction and personally dictated by me. I have reviewed the chart and agree that the record accurately reflects my personal performance of the history, physical exam, medical decision making, and the department course for this patient. I have also personally directed, reviewed, and agree with the discharge instructions and disposition. Please return in 7-10 days for the removal of your stitches Referrals: Louise Reis MD [Medical Doctor] - Follow up with primary [facility] [Outside] - Follow up with primary Forms: [employer] (Danish), WORK NOTE
== END 2018-05-28 16:58 | disposition home or self-care (01) ==
LOC: ED 14:03
DX: S01.112A Laceration without foreign body of left eyelid and periocular area, initial encounter (principal); W22.8XXA Striking against or struck by other objects, initial encounter; Y92.39 Other specified sports and athletic area as the place of occurrence of the external cause

== ENCOUNTER 2018-06-06 10:56 | Emergency (ER) | payer MEDICAID, OTHER ==
[2018-06-06 10:56] VITALS: BMI 20.9
[2018-06-06 11:14] VITALS: BP 118/71; PULSE 74; RESP 16; TEMP 98; O2SAT 99
--- NOTE | 2018-06-06 11:31 | ED PDOC ---
Arrival/HPI - General Chief Complaint: Suture/Staple Removal Time Seen by Provider: 06/06/18 10:57 Historian: Patient - History of Present Illness Narrative History of Present Illness (Text): 06/06/18 11:22 22yo female in ED for suture removal. Notes that sutures was placed here on 05/28/18. She denies bleeding, drainage, headache, any other complaint. Past Medical History - Provider Review Nursing Documentation Reviewed: Yes - Past History Past History: No Previous - Infectious Disease Hx of Infectious Diseases: None - Reproductive Menopause: No - Cardiac Hx Cardiac Disorders: No - Pulmonary Hx Respiratory Disorders: No - Neurological Hx Neurological Disorder: No - HEENT Hx HEENT Disorder: No - Renal Hx Renal Disorder: No - Endocrine/Metabolic Hx Endocrine Disorders: No - Hematological/Oncological Hx Blood Disorders: No - Integumentary Hx Dermatological Disorder: No - Musculoskeletal/Rheumatological Hx Musculoskeletal Disorders: No - Gastrointestinal Hx Gastrointestinal Disorders: No - Genitourinary/Gynecological Hx Genitourinary Disorders: No - Psychiatric Hx Psychophysiologic Disorder: Yes Hx Depression: Yes (no longer on meds) Hx Substance Use: No - Anesthesia Hx Anesthesia: No Family/Social History - Physician Review Nursing Documentation Reviewed: Yes Family/Social History: Unknown Family HX Smoking Status: Never Smoked Hx Alcohol Use: Yes Hx Substance Use: No Hx Substance Use Treatment: No Allergies/Home Meds Allergies/Adverse Reactions: Allergies No Known Allergies Allergy (Verified 02/10/17 11:26) Review of Systems - Physician Review All systems were reviewed & negative as marked: Yes - Review of Systems Constitutional: Normal Eyes: Normal ENT: Normal Respiratory: Normal Cardiovascular: Normal Gastrointestinal: Normal Genitourinary Female: Normal Musculoskeletal: Normal Skin: Other (Suture removal) Neurological: Normal Endocrine: Normal Hemo/Lymphatic: Normal Psychiatric: Normal Physical Exam Vital Signs Reviewed: Yes Vital Signs Temp Pulse Resp BP Pulse Ox 06/06/18 11:11 98 F 74 16 118/71 99 Temperature: Afebrile Blood Pressure: Normal Pulse: Regular Respiratory Rate: Normal Appearance: Positive for: Well-Appearing, Non-Toxic, Comfortable Pain Distress: None Mental Status: Positive for: Alert and Oriented X 3 - Systems Exam Head: Present: Atraumatic, Normocephalic Pupils: Present: PERRL Extroacular Muscles: Present: EOMI Conjunctiva: Present: Normal Mouth: Present: Moist Mucous Membranes Neck: Present: Normal Range of Motion Respiratory/Chest: Present: Clear to Auscultation, Good Air Exchange. No: Respiratory Distress, Accessory Muscle Use Cardiovascular: Present: Regular Rate and Rhythm, Normal S1, S2. No: Murmurs Abdomen: No: Tenderness, Distention, Peritoneal Signs Back: Present: Normal Inspection Upper Extremity: Present: Normal Inspection. No: Cyanosis, Edema Lower Extremity: Present: Normal Inspection. No: Edema Neurological: Present: GCS=15, CN II-XII Intact, Speech Normal Skin: Present: Warm, Dry, Normal Color, Other (8sutures noted in place over left temporal/eyebrow with scabs noted. No erythema. No discharge. No sign of infection). No: Rashes Psychiatric: Present: Alert, Oriented x 3, Normal Insight, Normal Concentration Medical Decision Making ED Course and Treatment: 06/06/18 11:36 Suture area cleaned with betadine. 8sutures removed. skin appear well approximated. Pt advised to keep area clean and dry and apply neosporin Disposition/Present on Arrival - Present on Arrival Any Indicators Present on Arrival: No History of DVT/PE: No History of Uncontrolled Diabetes: No Urinary Catheter: No History of Decub. Ulcer: No History Surgical Site Infection Following: None - Disposition Have Diagnosis and Disposition been Completed?: Yes Diagnosis: Visit for suture removal Disposition: HOME/ ROUTINE Disposition Time: 11:30 Patient Plan: Discharge Patient Problems: Current Active Problems Problem Status Onset Visit for suture removal Acute Condition: STABLE Discharge Instructions (ExitCare): Stitches Removal Additional Instructions: Keep area clean and dry follow up with your doctor Return to ED for any new or worsening symptoms Referrals: Louise Reis MD [Medical Doctor] - Follow up with primary Forms: [employer] (Latvian)
== END 2018-06-06 11:40 | disposition home or self-care (01) ==
LOC: ED 10:56
DX: Z48.02 Encounter for removal of sutures (principal)

== ENCOUNTER 2018-07-30 14:50 | Inpatient (IN) | payer MEDICAID, OTHER ==
[2018-07-30] MEDS ORDERED: Sodium Chloride 0.9% 2,000 ML IV STA (15:27)
--- NOTE | 2018-07-30 15:29 | ED PDOC ---
Arrival/HPI - General Chief Complaint: GI Problem Time Seen by Provider: 07/30/18 15:03 Historian: Patient - History of Present Illness Narrative History of Present Illness (Text): 07/30/18 15:28 Patient is a 23 year old female, with no significant past medical history, who presents to the emergency department complaining of severe menstrual cramps since 2 days. She states pain began localized to suprapubic region but is now d iffuse across abdomen. Patient appreciates multiple episodes of vomiting. She reports taking 16 midol in last 32 hours (last dose at 6 AM) for pain and is now concerned for Tylenol overdose. Reports vaginal bleeding. Patient denies SI/HI. Reports some diarrhea. Denies constipation, hematochezia, dysuria, fevers, chills, night sweats, headache Time/Duration: < week (2 days) Symptom Onset: Gradual Symptom Course: Unchanged Activities at Onset: Light Context: Home Past Medical History - Provider Review Nursing Documentation Reviewed: Yes - Past History Past History: No Previous - Infectious Disease Hx of Infectious Diseases: None - Cardiac Hx Cardiac Disorders: No - Pulmonary Hx Respiratory Disorders: No - Neurological Hx Neurological Disorder: No - HEENT Hx HEENT Disorder: No - Renal Hx Renal Disorder: No - Endocrine/Metabolic Hx Endocrine Disorders: No - Hematological/Oncological Hx Blood Disorders: No - Integumentary Hx Dermatological Disorder: No - Musculoskeletal/Rheumatological Hx Musculoskeletal Disorders: No - Gastrointestinal Hx Gastrointestinal Disorders: No - Genitourinary/Gynecological Hx Genitourinary Disorders: No - Psychiatric Hx Psychophysiologic Disorder: Yes Hx Depression: Yes (no longer on meds) Hx Substance Use: No - Anesthesia Hx Anesthesia: No Family/Social History - Physician Review Nursing Documentation Reviewed: Yes Family/Social History: Unknown Family HX Smoking Status: Never Smoked Hx Alcohol Use: Yes Hx Substance Use: No Hx Substance Use Treatment: No Allergies/Home Meds Allergies/Adverse Reactions: Allergies No Known Allergies Allergy (Verified 07/30/18 15:18) Home Medications: Home Meds Medication Instructions Recorded Confirmed No Known Home Med 07/30/18 07/30/18 Review of Systems - Physician Review All systems were reviewed & negative as marked: Yes - Review of Systems Constitutional: absent: Fevers, Night Sweats, Other ENT: absent: Hearing Changes Respiratory: absent: SOB, Cough, Sputum, Wheezing Cardiovascular: absent: Chest Pain Gastrointestinal: Abdominal Pain, Nausea, Vomiting. absent: Constipation, Diarrhea, Hematochezia Genitourinary Female: Vaginal Bleeding. absent: Dysuria, Hematuria, Vaginal Discharge Neurological: absent: Headache, Dizziness Endocrine: absent: Diaphoresis Psychiatric: absent: Suicidal Ideation, Other (homicidal ideation) Physical Exam Vital Signs Reviewed: Yes Temperature: Afebrile Blood Pressure: Normal Pulse: Regular Respiratory Rate: Normal Appearance: Positive for: Uncomfortable, Other (actively vomiting) Pain Distress: None Mental Status: Positive for: Alert and Oriented X 3 - Systems Exam Head: Present: Atraumatic, Normocephalic Pupils: Present: PERRL Extroacular Muscles: Present: EOMI Conjunctiva: Present: Normal Mouth: Present: Dry Neck: Present: Normal Range of Motion Respiratory/Chest: Present: Clear to Auscultation, Good Air Exchange. No: Respiratory Distress, Accessory Muscle Use, Wheezes, Rales, Rhonchi Cardiovascular: Present: Regular Rate and Rhythm, Normal S1, S2. No: Murmurs, Rub, Gallop Abdomen: Present: Normal Bowel Sounds. No: Tenderness, Distention, Peritoneal Signs, Rebound, Guarding Back: Present: Normal Inspection Upper Extremity: Present: Normal Inspection, NORMAL PULSES. No: Cyanosis, Edema Lower Extremity: Present: Normal Inspection, NORMAL PULSES. No: Edema Neurological: Present: GCS=15, CN II-XII Intact, Speech Normal Skin: Present: Warm, Dry, Normal Color. No: Rashes Psychiatric: Present: Alert, Oriented x 3, Normal Insight, Normal Concentration Medical Decision Making ED Course and Treatment: Impression: Patient is a 23 year old female, with no significant past medical history, who presents to the emergency department complaining of severe menstrual cramps since 2 days. She states pain began as localized to suprapubic region but is now diffuse across abdomen. Patient appreciates multiple episodes of vomiting. Patient informs taking 16 midol in the last 32 hours for pain; last dose at 6 AM today. She informs of vaginal bleeding. Denies diarrhea, constipation, hematochezia, dysuria, hematuria. On exam; pt actively vomiting with dry mucous membranes. Abdomen unremarkable. Plan: -- Abdomen/Pelvis CT with IV contrast -- Labs -- EKG -- Magnesium Sulfate -- Reglan -- Rocephin -- IV Fluids -- Zofran -- POC Urine Test -- Urinalysis w/ Micro -- Reassess and disposition Prior Visits: Notes and results from previous visits were reviewed. Progress Notes: 07/30/18 15:35 Spoke to poison control. Recommends treatment if increase in lfts or any detectable tylenol level 07/30/18 16:11 Elevated wbc. No other sirs criteria. 07/30/18 16:32 Spoke to poison control. Due to normal tylenol and nromal lfts, do not recommend NAC 07/30/18 17:23 EKG: NSR at 60 BPM. Sinus arrhythmia and QTC at 492. 07/30/18 17:27 Multiple episodes of vomiting and given multiple anti-emetics and pepcid. Will likely need admission for intractable vomiting. Pending CT abd/pelvis to r/o intrabdominal pathology. Given rocephin and flagyl due to concern for abdominal source. Signed out to Dr. Lopez to follow-up CT and admit. - EKG Interpretation Interpreted by ED Physician: Yes Type: 12 lead EKG - Medication Orders Current Medication Orders: Sodium Chloride (Sodium Chloride 0.9%) 2,000 mls @ 999 mls/hr IV .Q2H1M STA Stop: 07/30/18 17:27 - Scribe Statement The provider has reviewed the documentation as recorded by the Scribe Abdiel Carrera All medical record entries made by the Scribe were at my direction and personally dictated by me. I have reviewed the chart and agree that the record accurately reflects my personal performance of the history, physical exam, medical decision making, and the department course for this patient. I have also personally directed, reviewed, and agree with the discharge instructions and disposition. Disposition/Present on Arrival - Present on Arrival Any Indicators Present on Arrival: No History of DVT/PE: No History of Uncontrolled Diabetes: No Urinary Catheter: No History of Decub. Ulcer: No History Surgical Site Infection Following: None - Disposition Have Diagnosis and Disposition been Completed?: Yes Diagnosis: Leukocytosis, Abdominal cramping, Intractable vomiting Disposition: HOSPITALIZED Disposition Time: 20:13 Patient Plan: Admission Condition: FAIR Forms: [employer] (Bengali)
[2018-07-30 15:56] LABS: BASO # 0.02 K/mm3 (0.0-2.0); BASO % 0.1 % (0.0-3.0); HEMOGLOBIN 14.4 g/dL (12.0-16.0); LYMPH % 3.8 % (22.0-35.0); MEAN CELL VOLUME 85.3 fl (80.0-105.0); MEAN CORPUSCULAR HEMOGLOBIN 29.8 pg (25.0-35.0); MEAN PLATELET VOLUME 10.7 fl (7.0-11.0); MONO # 0.2 (0.1-0.6); MONO % 0.6 % (1.0-6.0); PLATELET COUNT 260 10^3/uL (120.0-450.0); RBC 4.83 10^6/uL (3.5-6.1); RED CELL DISTRIBUTION WIDTH 12.9 % (11.5-14.5); URINE BILIRUBIN NEGATIVE (NEGATIVE); URINE BLOOD LARGE (NEGATIVE); URINE GLUCOSE (UA) NEGATIVE (NEGATIVE); URINE LEUKOCYTE ESTERASE NEGATIVE Leu/uL (NEGATIVE); URINE PROTEIN 100 mg/dL (<30 mg/dL); URINE UROBILINOGEN 0.2 E.U./dL (<1 E.U./dL)
[2018-07-30 15:58] LABS: WHITE BLOOD COUNT 25.4 10^3/uL (4.5-11.0)
[2018-07-30 15:59] LABS: URINE APPEARANCE SLIGHT-CLOUDY (CLEAR); URINE COLOR YELLOW (YELLOW)
[2018-07-30 16:01] LABS: VENOUS BLOOD GAS BASE EXCESS -7.5 mmol/L (0.0-2.0); VENOUS BLOOD GAS PO2 31 mm/Hg (30-55)
[2018-07-30 16:08] LABS: INR 1.35; PARTIAL THROMBOPLASTIN TIME 33.6 Seconds (26.9-38.3)
[2018-07-30 16:12] LABS: ALB/GLOB RATIO 1.3 (1.1-1.8); ALBUMIN 5.4 g/dL (3.0-4.8); ALT/SGPT 12 U/L (7-56); AST/SGOT 31 U/L (14-36); BLOOD UREA NITROGEN 9 mg/dL (7-21); CALCIUM 10.2 mg/dL (8.4-10.5); GFR NON-AFRICAN AMERICAN > 60; LIPASE 34 U/L (23-300)
[2018-07-30 16:13] LABS: ACETAMINOPHEN < 10.0 ug/ml (10.0-20.0); SALICYLATE < 1 mg/dL (2.0-20.0)
[2018-07-30 16:34] LABS: URINE BACTERIA MANY /hpf; URINE RBC 25 - 30 /hpf (0-2)
[2018-07-30] MEDS ORDERED: cefTRIAXone 1 gm 1 GM/100 ML BAG IVPB STA (16:36)
[2018-07-30 16:39] LABS: BAND 4 % (0-2); LYMPHOCYTE 3 % (22.0-35.0); MONOCYTE 2 % (1.0-6.0); NEUTROPHIL 91 % (50.0-70.0); PLATELET ESTIMATE NORMAL (NORMAL)
[2018-07-30 16:40] LABS: ANISOCYTOSIS SLIGHT; TOXIC GRANULATION SLIGHT
[2018-07-30] MEDS ORDERED: Magnesium Sulfate 1 gm in D5W 1 GM/100 ML BAG IVPB ONE (17:06)
[2018-07-30] MEDS ORDERED: Iohexol 350 MG/100 ML VIAL ONE (17:42)
[2018-07-30] MEDS ORDERED: Sodium Chloride 0.9% 1,000 ML IV SCH (18:30)
[2018-07-30 19:17] LABS: BASO # 0.02 K/mm3 (0.0-2.0); BASO % 0.1 % (0.0-3.0); LYMPH # 0.6 (1.2-3.4); LYMPH % 2.9 % (22.0-35.0); MEAN CELL VOLUME 85.1 fl (80.0-105.0); MEAN CORPUSCULAR HEMOGLOBIN 29.3 pg (25.0-35.0); MEAN CORPUSCULAR HGB CONC 34.5 g/dl (31.0-37.0); MEAN PLATELET VOLUME 10.4 fl (7.0-11.0); MONO # 0.4 (0.1-0.6); MONO % 1.8 % (1.0-6.0); RBC 4.43 10^6/uL (3.5-6.1); WHITE BLOOD COUNT 19.2 10^3/uL (4.5-11.0)
[2018-07-30 19:18] LABS: VENOUS BLOOD GAS BASE EXCESS -10.8 mmol/L (0.0-2.0); VENOUS BLOOD GAS PO2 89 mm/Hg (30-55); VENOUS BLOOD PH 7.26 (7.32-7.43)
[2018-07-30] MEDS ORDERED: metroNIDAZOLE IV 500 mg/100 ml 500 MG/100 ML BAG IVPB STA (20:09)
[2018-07-30] MEDS ORDERED: Morphine 4 mg/ml ISec IVP STA (20:10)
--- NOTE | 2018-07-30 20:54 | ED PDOC ---
Physical Exam Vital Signs Temp Pulse Resp BP Pulse Ox 07/30/18 15:30 99 F 77 18 129/60 96 - Systems Exam Respiratory/Chest: Present: Clear to Auscultation, Good Air Exchange. No: Respiratory Distress, Accessory Muscle Use Cardiovascular: Present: Regular Rate and Rhythm, Normal S1, S2. No: Murmurs Abdomen: No: Tenderness, Distention, Peritoneal Signs Back: No: CVA Tenderness Medical Decision Making ED Course and Treatment: 07/30/18 20:54 Case was endorsed to me from Dr Lawson pending CT study of abdomen and pelvis prior to final disposition. Patient apparently had presented to the ER with menstrual cramp-like discomfort associated with multiple episodes of vomiting over the past couple of days. Patient apparently was otherwise asymptomatic but had a noted elevated WBC count in the ER by Dr Lawson, for which she was treated empirically with antibiotics. Patient also received IV fluids. 07/30/18 20:58 CT Abdomen and Pelvis with IV contrast CLINICAL HISTORY: SUPRAPUBIC PAIN TECHNIQUE: Axial computed tomography images of the abdomen and pelvis with intravenous contrast. 291.07 mGy-cm CONTRAST: With; OMNI 350 100 ml COMPARISON: None provided. FINDINGS: LUNG BASES: The lung bases appear clear. No pleural effusions are seen. LIVER: Unremarkable. GALLBLADDER AND BILE DUCTS: The gallbladder appears within normal limits. No radioopaque gallstones are seen. No biliary ductal dilatation is evident. PANCREAS: Unremarkable. SPLEEN: Unremarkable. ADRENAL GLANDS: Unremarkable. KIDNEYS, URETERS, AND BLADDER: The kidneys appear within normal limits. There is no hydronephrosis or hydroureter. No urinary calculi are seen. The urinary bladder appeared normal in size and configuration. STOMACH AND BOWEL: Unremarkable appearance of the stomach and bowel. No evidence of bowel obstruction. No evidence suggesting enteritis or colitis. APPENDIX: There is mild fluid distention of a retrocecal appendix measuring 8.5 mm in transverse diameter in the coronal reconstructed images. These findings are suspicious for acute appendicitis PERITONEUM: No free fluid. No free air. LYMPH NODES: No lymphadenopathy is evident. A grouping of several lymph nodes seen in the mesenteric fat of the right lower quadrant. At least 3 or more demonstrate a transverse axis of 5.0 mm or greater. These findings are compatible with mesenteric adenitis. REPRODUCTIVE: Unremarkable as visualized. VASCULATURE: No evidence of abdominal aortic aneurysm. BONES: No aggressive appearing osseous lesion. No acute osseous pathology evident. IMPRESSION: 1. Evidence of acute appendicitis as described above. 2. Findings compatible with mesenteric adenitis. 07/30/18 21:14 Case was discussed with hospital medical assistant and house physician Dr Alas, who accepts to the medsur service. residential leasing manager Dr Carter was consulted and will evaluate patient, Dr De La Cruz on consult. - Lab Interpretations Lab Results: pO2 89 mm/Hg (30-55) H 07/30/18 19:08 VBG pH 7.26 (7.32-7.43) L 07/30/18 19:08 VBG pCO2 34.0 (40-60) L 07/30/18 19:08 VBG HCO3 15.3 mmol/l (21-28) L 07/30/18 19:08 VBG Total CO2 16.3 mmol.L (22-28) L 07/30/18 19:08 VBG O2 Sat (Calc) 98.1 % (40-65) H 07/30/18 19:08 VBG Base Excess -10.8 mmol/L (0.0-2.0) L 07/30/18 19:08 VBG Potassium 3.7 mmol/L (3.6-5.2) 07/30/18 19:08 Sodium 138.0 mmol/L (132-148) 07/30/18 19:08 Chloride 104.0 mmol/L (98-107) 07/30/18 19:08 Glucose 131 mg/dl (65-105) H 07/30/18 19:08 Lactate 1.5 mmol/L (0.7-2.1) 07/30/18 19:08 FiO2 21.0 % 07/30/18 19:08 Crit Value Called To Dawn henson 07/30/18 15:51 Crit Value Called By Atc 07/30/18 15:51 Blood Gas Notified Time 1600 07/30/18 15:51 PT 15.0 SECONDS (9.4-12.5) H 07/30/18 15:51 INR 1.35 07/30/18 15:51 APTT 33.6 Seconds (26.9-38.3) 07/30/18 15:51 Total Bilirubin 0.7 mg/dL (0.2-1.3) 07/30/18 15:51 AST 31 U/L (14-36) 07/30/18 15:51 ALT 12 U/L (7-56) 07/30/18 15:51 Alkaline Phosphatase 111 U/L (38-126) 07/30/18 15:51 Total Protein 9.6 g/dL (5.8-8.3) H 07/30/18 15:51 Albumin 5.4 g/dL (3.0-4.8) H 07/30/18 15:51 Globulin 4.1 gm/dL 07/30/18 15:51 Albumin/Globulin Ratio 1.3 (1.1-1.8) 07/30/18 15:51 Lipase 34 U/L (23-300) 07/30/18 15:51 Urine Color Yellow (YELLOW) 07/30/18 15:51 Urine Appearance Slight-cloudy (CLEAR) 07/30/18 15:51 Urine pH 6.0 (4.7-8.0) 07/30/18 15:51 Ur Specific [place] >= 1.030 (1.005-1.035) 07/30/18 15:51 Urine Protein 100 mg/dL (<30 mg/dL) H 07/30/18 15:51 Urine Glucose (UA) Negative mg/dL (NEGATIVE) 07/30/18 15:51 Urine Ketones >=80 mg/dL (NEGATIVE) 07/30/18 15:51 Urine Blood Large (NEGATIVE) H 07/30/18 15:51 Urine Nitrate Negative (NEGATIVE) 07/30/18 15:51 Urine Bilirubin Negative (NEGATIVE) 07/30/18 15:51 Urine Urobilinogen 0.2 E.U./dL (<1 E.U./dL) 07/30/18 15:51 Ur Leukocyte Esterase Negative Syed/uL (NEGATIVE) 07/30/18 15:51 Urine RBC 25 - 30 /hpf (0-2) H 07/30/18 15:51 Urine WBC 2 - 5 /hpf (0-6) 07/30/18 15:51 Ur Epithelial Cells 6 - 8 /hpf (0-5) H 07/30/18 15:51 Urine Bacteria Many /hpf (NONE) 07/30/18 15:51 Urine Other Uyeast /hpf 07/30/18 15:51 Beta HCG, Quant < 2.39 mIU/mL (0-6.15) 07/30/18 15:51 - RAD Interpretation Radiology Orders: 07/30/18 ABD & PELVIS IV CONTRAST ONLY [CT] Stat - Medication Orders Current Medication Orders: Sodium Chloride (Sodium Chloride 0.9%) 1,000 mls @ 100 mls/hr IV .Q10H AZAEL Last Admin: 07/30/18 19:59 Dose: 100 mls/hr eMAR Start Stop Document 07/30/18 19:59 SS (Rec: 07/30/18 19:59 SS [id number]) Intravenous Solution Start Date 07/30/18 Start Time 19:59 Metronidazole (Flagyl) 500 mg in 100 mls @ 100 mls/hr IVPB STAT STA; Protocol Stop: 07/30/18 21:08 Last Admin: 07/30/18 20:31 Dose: 100 mls/hr eMAR Start Stop Document 07/30/18 20:31 SS (Rec: 07/30/18 20:31 SS [id number]) Intravenous Solution Start Date 07/30/18 Start Time 20:31 End Date 07/30/18 End time 21:31 Total Infusion Time 60 Ceftriaxone Sodium (Rocephin 1 Gram Ivpb) 1 gm in 100 mls @ 100 mls/hr IVPB DAILY AZAEL; Protocol Discontinued Medications Famotidine (Pepcid) 20 mg IVP STAT STA Stop: 07/30/18 19:31 Last Admin: 07/30/18 19:59 Dose: 20 mg IVP Administration Document 07/30/18 19:59 SS (Rec: 07/30/18 19:59 SS [id number]) Charges for Administration # of IVP Administrations 1 Sodium Chloride (Sodium Chloride 0.9%) 2,000 mls @ 999 mls/hr IV .Q2H1M STA Stop: 07/30/18 17:27 Last Admin: 07/30/18 15:53 Dose: 999 mls/hr eMAR Start Stop Document 07/30/18 15:53 SS (Rec: 07/30/18 15:53 SS [id number]) Intravenous Solution Start Date 07/30/18 Start Time 15:53 End Date 07/30/18 End time 17:53 Total Infusion Time 120 Magnesium Sulfate/Dextrose (Magnesium Sulfate 1 Gm/100 Ml D5w) 1 gm in 100 mls @ 100 mls/hr IVPB ONCE ONE Stop: 07/30/18 18:05 Last Admin: 07/30/18 18:07 Dose: 100 mls/hr eMAR Start Stop Document 07/30/18 18:07 SS (Rec: 07/30/18 18:07 SS [id number]) Intravenous Solution Start Date 07/30/18 Start Time 18:07 End Date 07/30/18 End time 19:07 Total Infusion Time 60 Metoclopramide HCl (Reglan) 10 mg IVP STAT STA Stop: 07/30/18 16:56 Last Admin: 07/30/18 17:10 Dose: 10 mg IVP Administration Document 07/30/18 17:10 SS (Rec: 07/30/18 17:10 SS [place] [id number]) Charges for Administration # of IVP Administrations 1 Morphine Sulfate (Morphine) 4 mg IVP STAT STA Stop: 07/30/18 20:11 Last Admin: 07/30/18 20:28 Dose: 4 mg MAR Pain Assessment Document 07/30/18 20:28 SS (Rec: 07/30/18 20:30 SS [place] [id number]) Pain Reassessment Is this a pain reassessment? Yes Sleep Is patient sleeping during reassessment? No Presence of Pain Presence of Pain Yes IVP Administration Document 07/30/18 20:28 SS (Rec: 07/30/18 20:30 SS [place] [id number]) Charges for Administration # of IVP Administrations 1 Ondansetron HCl (Zofran Inj) 4 mg IVP STAT STA Stop: 07/30/18 15:36 Last Admin: 07/30/18 15:53 Dose: 4 mg IVP Administration Document 07/30/18 15:53 SS (Rec: 07/30/18 15:53 SS [place] [id number]) Charges for Administration # of IVP Administrations 1 Ondansetron HCl (Zofran Inj) 4 mg IVP STAT STA Stop: 07/30/18 16:14 Last Admin: 07/30/18 16:32 Dose: 4 mg IVP Administration Document 07/30/18 16:32 SS (Rec: 07/30/18 16:32 SS [place] [id number]) Charges for Administration # of IVP Administrations 1 Prochlorperazine (Compazine Tab) 5 mg PO STAT STA Stop: 07/30/18 17:41 Prochlorperazine (Compazine Rectal Supp) 25 mg RC STAT STA Stop: 07/30/18 17:58 Last Admin: 07/30/18 18:32 Dose: 25 mg Disposition/Present on Arrival - Present on Arrival Any Indicators Present on Arrival: No History of DVT/PE: No History of Uncontrolled Diabetes: No Urinary Catheter: No History of Decub. Ulcer: No History Surgical Site Infection Following: None - Disposition Have Diagnosis and Disposition been Completed?: Yes Diagnosis: Leukocytosis, Abdominal cramping, Intractable vomiting, Appendicitis Disposition: HOSPITALIZED Disposition Time: 21:05 Patient Plan: Admission Patient Problems: Current Active Problems Problem Status Onset Abdominal cramping Acute Appendicitis Acute Intractable vomiting Acute Leukocytosis Acute Condition: FAIR
[2018-07-30] MEDS ORDERED: HYDROmorphone 0.5 mg/0.5 ml ISec IVP PRN (22:28)
[2018-07-30] MEDS ORDERED: Ciprofloxacin 200mg/100ml D5W 100 ML IVPB SCH (22:30)
--- NOTE | 2018-07-30 22:44 | CARD ---
APPROVED REPORT Date of service: 07/30/2018 EKG Measurement Heart [id number] <Conclusion> Poor data quality, interpretation may be adversely affected Normal sinus rhythm with sinus arrhythmia Prolonged QT Abnormal ECG
--- NOTE | 2018-07-30 22:45 | CP.PCM.CON ---
History of Present Illness - History of Present Illness History of Present Illness: General Surgery Consult note for Dr. Tamir Carter, PGY-2 Pt seen/examined at bedside 23F w/PMH sig for R ovarian cyst consulted for RLQ abdominal pain x 1 day. Pt reports that she awoke at 6am with cramping, periumbilical pain that then re- located to the RLQ. Pain is cramping & pressure like, severe, increased in intensity over the day, constant, non radiating. Patient tried to alleviate pain by taking 16 Midol, took NAC due to worry about Acetaminophen overdose. Pain alleviated by morphine, aggravated by vomiting. Admits to associated nb, bilious emesis approximately 8x per hr since 6am, diarrhea (non bloody), decre ased appetite, reflux - mid chest pain, fevers, chills, diaphoresis. Denies sick contacts, recent travel or eating different foods, cough, sore throat, weakness, changes in urinary habits, hematochezia, hematemesis. In ED WBC 19.2 from 24.4, lactic acid 1.[address] w/findings of acute appendicitis. PMH: hx of depression, R ovarian cyt, hx of reflux PSH: dental surgery All: NKDA SH: Denies tobacco use, social ETOH use, marijuana use FH: Grandmother had cancer PMD: denies Review of Systems - Review of Systems All systems: reviewed and no additional remarkable complaints except - Constitutional Constitutional: Chills, Fever. absent: Headache, Weakness - EENT Eyes: absent: Change in Vision Nose/Mouth/Throat: absent: Sore Throat - Respiratory Respiratory: absent: Cough - Gastrointestinal Gastrointestinal: Abdominal Pain, Change in Stool Character, Diarrhea, Loose Stools, Nausea, Vomiting. absent: Coffee Ground Emesis, Constipation, Hematemesis, Hematochezia - Genitourinary Genitourinary: absent: Change in Urinary Stream, Hematuria - Musculoskeletal Musculoskeletal: absent: Back Pain - Integumentary Integumentary: absent: Rash - Neurological Neurological: absent: Weakness - Psychiatric Psychiatric: Change in Appetite (decreased) Past Patient History - Infectious Disease Hx of Infectious Diseases: None - Past Social History Smoking Status: Never Smoked - CARDIAC Hx Cardiac Disorders: No - PULMONARY Hx Respiratory Disorders: No - NEUROLOGICAL Hx Neurological Disorder: No - HEENT Hx HEENT Problems: No - RENAL Hx Chronic Kidney Disease: No - ENDOCRINE/METABOLIC Hx Endocrine Disorders: No - HEMATOLOGICAL/ONCOLOGICAL Hx Blood Disorders: No - INTEGUMENTARY Hx Dermatological Problems: No - MUSCULOSKELETAL/RHEUMATOLOGICAL Hx Musculoskeletal Disorders: No - GASTROINTESTINAL Hx Gastrointestinal Disorders: No - GENITOURINARY/GYNECOLOGICAL Hx Genitourinary Disorders: No - PSYCHIATRIC Hx Psychophysiologic Disorder: Yes Hx Depression: Yes (no longer on meds) Hx Substance Use: No - SURGICAL HISTORY Hx Surgeries: No - ANESTHESIA Hx Anesthesia: No Meds Allergies/Adverse Reactions: Allergies Allergy/AdvReac Type Severity Reaction Status Date / Time No Known Allergies Allergy Verified 07/30/18 15:18 - Medications Medications: Current Medications Hydromorphone HCl (Dilaudid) 0.5 mg IVP Q4H PRN PRN Reason: Pain, severe (8-10) Ceftriaxone Sodium (Rocephin 1 Gram Ivpb) 1 gm in 100 mls @ 100 mls/hr IVPB DAILY AZAEL; Protocol Ciprofloxacin (Cipro 200mg/100ml D5w) 100 mls @ 67 mls/hr IVPB Q12 AZAEL; Protocol Stop: 07/31/18 00:00 Metronidazole (Flagyl) 500 mg in 100 mls @ 100 mls/hr IVPB Q8 AZAEL; Protocol Lactated Ringer's (Lactated Ringer's) 1,000 mls @ 150 mls/hr IV .Q6H40M AZAEL Ondansetron HCl (Zofran Inj) 4 mg IVP Q6H PRN PRN Reason: Nausea/Vomiting Physical Exam - Constitutional Appears: Non-toxic, No Acute Distress - Head Exam Head Exam: ATRAUMATIC, NORMAL INSPECTION, NORMOCEPHALIC - Eye Exam Eye Exam: EOMI, Normal appearance - ENT Exam ENT Exam: Mucous Membranes Moist, Normal Exam - Neck Exam Neck exam: Positive for: Full Rom, Normal Inspection - Respiratory Exam Respiratory Exam: Clear to Auscultation Bilateral, NORMAL BREATHING PATTERN. absent: Chest Wall Tenderness, Rales, Rhonchi, Wheezes, Respiratory Distress - Cardiovascular Exam Cardiovascular Exam: Tachycardia, +S1, +S2 - GI/Abdominal Exam GI & Abdominal Exam: Guarding, Soft, Tenderness. absent: Distended, Firm, Hernia, Rebound, Rigid Additional comments: RLQ - Extremities Exam Extremities exam: Positive for: normal inspection - Neurological Exam Neurological exam: Alert, CN II-XII Intact, Oriented x3 - Psychiatric Exam Psychiatric exam: Normal Affect, Normal Mood - Skin Skin Exam: Dry, Intact, Normal Color, Warm Results - Vital Signs Recent Vital Signs: Last Vital Signs Temp 99 F 07/30/18 15:30 Pulse 86 07/30/18 21:12 Resp 18 07/30/18 21:12 BP 109/45 L 07/30/18 21:12 Pulse Ox 98 07/30/18 21:12 - Labs Result Diagrams: 07/30/18 19:08 07/30/18 15:51 Labs: Laboratory Results - last 24 hr 07/30/18 07/30/18 07/30/18 15:51 15:51 15:51 WBC 25.4 H* RBC 4.83 Hgb 14.4 Hct 41.2 MCV 85.3 MCH 29.8 MCHC 35.0 RDW 12.9 Plt Count 260 MPV 10.7 Neut % (Auto) 95.5 H Lymph % (Auto) 3.8 L [place] % (Auto) 0.6 L Eos % (Auto) 0.0 L Baso % (Auto) 0.1 Lymph # (Auto) 1.0 L [place] # (Auto) 0.2 Eos # (Auto) 0.0 Baso # (Auto) 0.02 Absolute Neuts (auto) 24.21 H Neutrophils % (Manual) 91 H Band Neutrophils % 4 H Lymphocytes % (Manual) 3 L Monocytes % (Manual) 2 Toxic Granulation Slight Platelet Evaluation Normal Anisocytosis (manual) Slight PT 15.0 H INR 1.35 APTT 33.6 pO2 31 VBG pH 7.30 L VBG pCO2 37.0 L VBG HCO3 18.2 L VBG Total CO2 19.3 L VBG O2 Sat (Calc) 57.7 VBG Base Excess -7.5 L VBG Potassium 3.6 Sodium 140.0 Chloride 99.0 Glucose 164 H Lactate 2.4 H FiO2 21.0 Crit Value Called To Dawn henson Crit Value Called By Atc Blood Gas Notified Time 1600 Potassium Carbon Dioxide Anion Gap BUN Creatinine Est GFR ( Amer) Est GFR (Non-Af Amer) POC Glucose (mg/dL) Random Glucose Calcium Phosphorus Magnesium Total Bilirubin AST ALT Alkaline Phosphatase Total Protein Albumin Globulin Albumin/Globulin Ratio Lipase Beta HCG, Quant Venous Blood Potassium 3.6 Urine Color Urine Appearance Urine pH Ur Specific [place] Urine Protein Urine Glucose (UA) Urine Ketones Urine Blood Urine Nitrate Urine Bilirubin Urine Urobilinogen Ur Leukocyte Esterase Urine RBC Urine WBC Ur Epithelial Cells Urine Bacteria Urine Other Salicylates Acetaminophen Alcohol, Quantitative Blood Type Antibody Screen BBK History Checked 07/30/18 07/30/18 07/30/18 15:51 15:51 15:51 WBC RBC Hgb Hct MCV MCH MCHC RDW Plt Count MPV Neut % (Auto) Lymph % (Auto) [place] % (Auto) Eos % (Auto) Baso % (Auto) Lymph # (Auto) [place] # (Auto) Eos # (Auto) Baso # (Auto) Absolute Neuts (auto) Neutrophils % (Manual) Band Neutrophils % Lymphocytes % (Manual) Monocytes % (Manual) Toxic Granulation Platelet Evaluation Anisocytosis (manual) PT INR APTT pO2 VBG pH VBG pCO2 VBG HCO3 VBG Total CO2 VBG O2 Sat (Calc) VBG Base Excess VBG Potassium Sodium 141 Chloride 101 Glucose Lactate FiO2 Crit Value Called To Crit Value Called By Blood Gas Notified Time Potassium 3.9 Carbon Dioxide 18 L Anion Gap 26 H BUN 9 Creatinine 0.7 Est GFR ( Amer) > 60 Est GFR (Non-Af Amer) > 60 POC Glucose (mg/dL) Random Glucose 166 H Calcium 10.2 Phosphorus 4.6 H Magnesium 1.9 Total Bilirubin 0.7 AST 31 ALT 12 Alkaline Phosphatase 111 Total Protein 9.6 H Albumin 5.4 H Globulin 4.1 Albumin/Globulin Ratio 1.3 Lipase 34 Beta HCG, Quant Venous Blood Potassium Urine Color Urine Appearance Urine pH Ur Specific [place] Urine Protein Urine Glucose (UA) Urine Ketones Urine Blood Urine Nitrate Urine Bilirubin Urine Urobilinogen Ur Leukocyte Esterase Urine RBC Urine WBC Ur Epithelial Cells Urine Bacteria Urine Other Salicylates < 1 L Acetaminophen < 10.0 L Alcohol, Quantitative < 10 Blood Type Antibody Screen BBK History Checked 07/30/18 07/30/18 07/30/18 15:51 15:51 19:08 WBC 19.2 H D RBC 4.43 Hgb 13.0 Hct 37.7 MCV 85.1 MCH 29.3 MCHC 34.5 RDW 13.0 Plt Count 202 MPV 10.4 Neut % (Auto) 95.2 H Lymph % (Auto) 2.9 L [place] % (Auto) 1.8 Eos % (Auto) 0.0 L Baso % (Auto) 0.1 Lymph # (Auto) 0.6 L [place] # (Auto) 0.4 Eos # (Auto) 0.0 Baso # (Auto) 0.02 Absolute Neuts (auto) 18.26 H Neutrophils % (Manual) Band Neutrophils % Lymphocytes % (Manual) Monocytes % (Manual) Toxic Granulation Platelet Evaluation Anisocytosis (manual) PT INR APTT pO2 VBG pH VBG pCO2 VBG HCO3 VBG Total CO2 VBG O2 Sat (Calc) VBG Base Excess VBG Potassium Sodium Chloride Glucose Lactate FiO2 Crit Value Called To Crit Value Called By Blood Gas Notified Time Potassium Carbon Dioxide Anion Gap BUN Creatinine Est GFR ( Amer) Est GFR (Non-Af Amer) POC Glucose (mg/dL) Random Glucose Calcium Phosphorus Magnesium Total Bilirubin AST ALT Alkaline Phosphatase Total Protein Albumin Globulin Albumin/Globulin Ratio Lipase Beta HCG, Quant < 2.39 Venous Blood Potassium Urine Color Yellow Urine Appearance Slight-cloudy Urine pH 6.0 Ur Specific [place] >= 1.030 Urine Protein 100 H Urine Glucose (UA) Negative Urine Ketones >=80 Urine Blood Large H Urine Nitrate Negative Urine Bilirubin Negative Urine Urobilinogen 0.2 Ur Leukocyte Esterase Negative Urine RBC 25 - 30 H Urine WBC 2 - 5 Ur Epithelial Cells 6 - 8 H Urine Bacteria Many Urine Other Uyeast Salicylates Acetaminophen Alcohol, Quantitative Blood Type Antibody Screen BBK History Checked 07/30/18 07/30/18 07/30/18 19:08 20:05 21:13 WBC RBC Hgb Hct MCV MCH MCHC RDW Plt Count MPV Neut % (Auto) Lymph % (Auto) [place] % (Auto) Eos % (Auto) Baso % (Auto) Lymph # (Auto) [place] # (Auto) Eos # (Auto) Baso # (Auto) Absolute Neuts (auto) Neutrophils % (Manual) Band Neutrophils % Lymphocytes % (Manual) Monocytes % (Manual) Toxic Granulation Platelet Evaluation Anisocytosis (manual) PT INR APTT pO2 89 H VBG pH 7.26 L VBG pCO2 34.0 L VBG HCO3 15.3 L VBG Total CO2 16.3 L VBG O2 Sat (Calc) 98.1 H VBG Base Excess -10.8 L VBG Potassium 3.7 Sodium 138.0 Chloride 104.0 Glucose 131 H Lactate 1.5 FiO2 21.0 Crit Value Called To Crit Value Called By Blood Gas Notified Time Potassium Carbon Dioxide Anion Gap BUN Creatinine Est GFR ( Amer) Est GFR (Non-Af Amer) POC Glucose (mg/dL) 112 H Random Glucose Calcium Phosphorus Magnesium Total Bilirubin AST ALT Alkaline Phosphatase Total Protein Albumin Globulin Albumin/Globulin Ratio Lipase Beta HCG, Quant Venous Blood Potassium 3.7 Urine Color Urine Appearance Urine pH Ur Specific [place] Urine Protein Urine Glucose (UA) Urine Ketones Urine Blood Urine Nitrate Urine Bilirubin Urine Urobilinogen Ur Leukocyte Esterase Urine RBC Urine WBC Ur Epithelial Cells Urine Bacteria Urine Other Salicylates Acetaminophen Alcohol, Quantitative Blood Type O POSITIVE Antibody Screen Negative BBK History Checked No verified bt Assessment & Plan - Assessment and Plan (Free Text) Assessment: 23F w/acute appendicitis Plan: NPO pMN IVF Abx Pain control SCDs Consent in chart Plan for OR in AM DW Dr. De La Cruz - Date & Time Date: 07/30/18 Time: 22:46
[2018-07-30] MEDS: Lactated Ringer's 1,000 ML IV SCH (23:26)
--- NOTE | 2018-07-31 00:01 | CP.PCM.HP ---
<ParkerKush schofield - Last Filed: 07/31/18 06:26> History of Present Illness - History of Present Illness History of Present Illness: Kush Camara DO PGY-1 H&P Note for Dr. Evette Mendosa: abd pain/ nausea/vomiting 23 y/o female with PMH of PCOS, GERD presents to the ED with diffuse abd pain x3 days. She started to have NBNB vomiting today, watery/non bloody diarrhea, fever, chills, diaphoresis. She is currenttly menestruating and reports taking 16 midol in last 32 hours for her mentrual cramping that did not help. She reports having similar symptoms years ago. Denies urinary symptoms, CP, palpitations, cough, headache. 12 points ROS reviewed and otherwise negative PMHx: PCOS, GERD, anxiety PSHx: none FH: mother , HTN. Father, depression Social Hx: no tobacco, drinks socially, uses marijuana All:NKDA Meds: none Present on Admission - Present on Admission Any Indicators Present on Admission: No Past Patient History - Infectious Disease Hx of Infectious Diseases: None - Past Social History Smoking Status: Never Smoked - CARDIAC Hx Cardiac Disorders: No - PULMONARY Hx Respiratory Disorders: No - NEUROLOGICAL Hx Neurological Disorder: No - HEENT Hx HEENT Problems: No - RENAL Hx Chronic Kidney Disease: No - ENDOCRINE/METABOLIC Hx Endocrine Disorders: No - HEMATOLOGICAL/ONCOLOGICAL Hx Blood Disorders: No - INTEGUMENTARY Hx Dermatological Problems: No - MUSCULOSKELETAL/RHEUMATOLOGICAL Hx Musculoskeletal Disorders: No - GASTROINTESTINAL Hx Gastrointestinal Disorders: No - GENITOURINARY/GYNECOLOGICAL Hx Genitourinary Disorders: No - PSYCHIATRIC Hx Psychophysiologic Disorder: Yes Hx Depression: Yes (no longer on meds) Hx Substance Use: No - SURGICAL HISTORY Hx Surgeries: No - ANESTHESIA Hx Anesthesia: No Meds Allergies/Adverse Reactions: Allergies Allergy/AdvReac Type Severity Reaction Status Date / Time No Known Allergies Allergy Verified 07/30/18 15:18 Physical Exam - Constitutional Appears: Well, Non-toxic - Head Exam Head Exam: ATRAUMATIC, NORMAL INSPECTION, NORMOCEPHALIC - Eye Exam Eye Exam: EOMI, Normal appearance, PERRL Pupil Exam: NORMAL ACCOMODATION, PERRL - ENT Exam ENT Exam: Mucous Membranes Dry - Neck Exam Neck exam: Positive for: Normal Inspection - Respiratory Exam Respiratory Exam: Clear to Auscultation Bilateral, NORMAL BREATHING PATTERN - Cardiovascular Exam Cardiovascular Exam: REGULAR RHYTHM, +S1, +S2. absent: Gallop, RRR - GI/Abdominal Exam GI & Abdominal Exam: Guarding, Normal Bowel Sounds, Soft, Tenderness. absent: Distended, Mass, Rebound, Rigid - Expanded GI/Abdominal Exam Expanded Expanded GI & Abdominal Exam: Psoas Sign, McBurney's Point Tenderness - Extremities Exam Extremities exam: Positive for: normal inspection - Back Exam Back exam: NORMAL INSPECTION - Neurological Exam Neurological exam: Alert, CN II-XII Intact, Normal Gait, Oriented x3, Reflexes Normal - Psychiatric Exam Psychiatric exam: Normal Affect, Normal Mood - Skin Skin Exam: Dry, Intact, Normal Color, Warm Results - Vital Signs Recent Vital Signs: Last Vital Signs Temp 99 F 07/30/18 15:30 Pulse 84 07/30/18 23:20 Resp 18 07/30/18 23:20 BP 109/65 07/30/18 23:20 Pulse Ox 99 07/30/18 23:20 - Labs Result Diagrams: 07/30/18 19:08 07/30/18 15:51 Labs: Laboratory Results - last 24 hr 07/30/18 07/30/18 07/30/18 15:51 15:51 15:51 WBC 25.4 H* RBC 4.83 Hgb 14.4 Hct 41.2 MCV 85.3 MCH 29.8 MCHC 35.0 RDW 12.9 Plt Count 260 MPV 10.7 Neut % (Auto) 95.5 H Lymph % (Auto) 3.8 L Republic % (Auto) 0.6 L Eos % (Auto) 0.0 L Baso % (Auto) 0.1 Lymph # (Auto) 1.0 L [place] # (Auto) 0.2 Eos # (Auto) 0.0 Baso # (Auto) 0.02 Absolute Neuts (auto) 24.21 H Neutrophils % (Manual) 91 H Band Neutrophils % 4 H Lymphocytes % (Manual) 3 L Monocytes % (Manual) 2 Toxic Granulation Slight Platelet Evaluation Normal Anisocytosis (manual) Slight PT 15.0 H INR 1.35 APTT 33.6 pO2 31 VBG pH 7.30 L VBG pCO2 37.0 L VBG HCO3 18.2 L VBG Total CO2 19.3 L VBG O2 Sat (Calc) 57.7 VBG Base Excess -7.5 L VBG Potassium 3.6 Sodium 140.0 Chloride 99.0 Glucose 164 H Lactate 2.4 H FiO2 21.0 Crit Value Called To Dawn henson Crit Value Called By [facility] Blood Gas Notified Time 1600 Potassium Carbon Dioxide Anion Gap BUN Creatinine Est GFR ( Amer) Est GFR (Non-Af Amer) POC Glucose (mg/dL) Random Glucose Calcium Phosphorus Magnesium Total Bilirubin AST ALT Alkaline Phosphatase Total Protein Albumin Globulin Albumin/Globulin Ratio Lipase Beta HCG, Quant Venous Blood Potassium 3.6 Urine Color Urine Appearance Urine pH Ur Specific [place] Urine Protein Urine Glucose (UA) Urine Ketones Urine Blood Urine Nitrate Urine Bilirubin Urine Urobilinogen Ur Leukocyte Esterase Urine RBC Urine WBC Ur Epithelial Cells Urine Bacteria Urine Other Salicylates Acetaminophen Alcohol, Quantitative Blood Type Antibody Screen BBK History Checked 07/30/18 07/30/18 07/30/18 15:51 15:51 15:51 WBC RBC Hgb Hct MCV MCH MCHC RDW Plt Count MPV Neut % (Auto) Lymph % (Auto) Republic % (Auto) Eos % (Auto) Baso % (Auto) Lymph # (Auto) [place] # (Auto) Eos # (Auto) Baso # (Auto) Absolute Neuts (auto) Neutrophils % (Manual) Band Neutrophils % Lymphocytes % (Manual) Monocytes % (Manual) Toxic Granulation Platelet Evaluation Anisocytosis (manual) PT INR APTT pO2 VBG pH VBG pCO2 VBG HCO3 VBG Total CO2 VBG O2 Sat (Calc) VBG Base Excess VBG Potassium Sodium 141 Chloride 101 Glucose Lactate FiO2 Crit Value Called To Crit Value Called By Blood Gas Notified Time Potassium 3.9 Carbon Dioxide 18 L Anion Gap 26 H BUN 9 Creatinine 0.7 Est GFR ( Amer) > 60 Est GFR (Non-Af Amer) > 60 POC Glucose (mg/dL) Random Glucose 166 H Calcium 10.2 Phosphorus 4.6 H Magnesium 1.9 Total Bilirubin 0.7 AST 31 ALT 12 Alkaline Phosphatase 111 Total Protein 9.6 H Albumin 5.4 H Globulin 4.1 Albumin/Globulin Ratio 1.3 Lipase 34 Beta HCG, Quant Venous Blood Potassium Urine Color Urine Appearance Urine pH Ur Specific [place] Urine Protein Urine Glucose (UA) Urine Ketones Urine Blood Urine Nitrate Urine Bilirubin Urine Urobilinogen Ur Leukocyte Esterase Urine RBC Urine WBC Ur Epithelial Cells Urine Bacteria Urine Other Salicylates < 1 L Acetaminophen < 10.0 L Alcohol, Quantitative < 10 Blood Type Antibody Screen BBK History Checked 07/30/18 07/30/18 07/30/18 15:51 15:51 19:08 WBC 19.2 H D RBC 4.43 Hgb 13.0 Hct 37.7 MCV 85.1 MCH 29.3 MCHC 34.5 RDW 13.0 Plt Count 202 MPV 10.4 Neut % (Auto) 95.2 H Lymph % (Auto) 2.9 L [place] % (Auto) 1.8 Eos % (Auto) 0.0 L Baso % (Auto) 0.1 Lymph # (Auto) 0.6 L [place] # (Auto) 0.4 Eos # (Auto) 0.0 Baso # (Auto) 0.02 Absolute Neuts (auto) 18.26 H Neutrophils % (Manual) Band Neutrophils % Lymphocytes % (Manual) Monocytes % (Manual) Toxic Granulation Platelet Evaluation Anisocytosis (manual) PT INR APTT pO2 VBG pH VBG pCO2 VBG HCO3 VBG Total CO2 VBG O2 Sat (Calc) VBG Base Excess VBG Potassium Sodium Chloride Glucose Lactate FiO2 Crit Value Called To Crit Value Called By Blood Gas Notified Time Potassium Carbon Dioxide Anion Gap BUN Creatinine Est GFR ( Amer) Est GFR (Non-Af Amer) POC Glucose (mg/dL) Random Glucose Calcium Phosphorus Magnesium Total Bilirubin AST ALT Alkaline Phosphatase Total Protein Albumin Globulin Albumin/Globulin Ratio Lipase Beta HCG, Quant < 2.39 Venous Blood Potassium Urine Color Yellow Urine Appearance Slight-cloudy Urine pH 6.0 Ur Specific [place] >= 1.030 Urine Protein 100 H Urine Glucose (UA) Negative Urine Ketones >=80 Urine Blood Large H Urine Nitrate Negative Urine Bilirubin Negative Urine Urobilinogen 0.2 Ur Leukocyte Esterase Negative Urine RBC 25 - 30 H Urine WBC 2 - 5 Ur Epithelial Cells 6 - 8 H Urine Bacteria Many Urine Other Uyeast Salicylates Acetaminophen Alcohol, Quantitative Blood Type Antibody Screen BBK History Checked 07/30/18 07/30/18 07/30/18 19:08 20:05 21:13 WBC RBC Hgb Hct MCV MCH MCHC RDW Plt Count MPV Neut % (Auto) Lymph % (Auto) Republic % (Auto) Eos % (Auto) Baso % (Auto) Lymph # (Auto) [place] # (Auto) Eos # (Auto) Baso # (Auto) Absolute Neuts (auto) Neutrophils % (Manual) Band Neutrophils % Lymphocytes % (Manual) Monocytes % (Manual) Toxic Granulation Platelet Evaluation Anisocytosis (manual) PT INR APTT pO2 89 H VBG pH 7.26 L VBG pCO2 34.0 L VBG HCO3 15.3 L VBG Total CO2 16.3 L VBG O2 Sat (Calc) 98.1 H VBG Base Excess -10.8 L VBG Potassium 3.7 Sodium 138.0 Chloride 104.0 Glucose 131 H Lactate 1.5 FiO2 21.0 Crit Value Called To Crit Value Called By Blood Gas Notified Time Potassium Carbon Dioxide Anion Gap BUN Creatinine Est GFR ( Amer) Est GFR (Non-Af Amer) POC Glucose (mg/dL) 112 H Random Glucose Calcium Phosphorus Magnesium Total Bilirubin AST ALT Alkaline Phosphatase Total Protein Albumin Globulin Albumin/Globulin Ratio Lipase Beta HCG, Quant Venous Blood Potassium 3.7 Urine Color Urine Appearance Urine pH Ur Specific [place] Urine Protein Urine Glucose (UA) Urine Ketones Urine Blood Urine Nitrate Urine Bilirubin Urine Urobilinogen Ur Leukocyte Esterase Urine RBC Urine WBC Ur Epithelial Cells Urine Bacteria Urine Other Salicylates Acetaminophen Alcohol, Quantitative Blood Type O POSITIVE Antibody Screen Negative BBK History Checked No verified bt Assessment & Plan - Assessment and Plan (Free Text) Assessment: 23 y/o female with PMH of PCOS, GERD presents to the ED with diffuse abd pain x3 day, N/V/D. Found to have leukocytosis, CT A/P suggestive of acute appendicitis Plan: Abd pain/nausea/vomiting: -CT A/P w IV contrast: mild fluid distention of a retrocecal appendix measuring 8.5 mm, suggestive of acute appendicitis -leukocytosis 25.4, afebrile -started abx cipro, flagyl -IVF LR @150 cc/hr -continue zofran, pepcid IVP -dilaudid prn -NPO -UA: negative LE, nitrate, +blood (pt menstruating) -UCx pending -surgery consulted, Dr De La Cruz. Surgery in am PPX: DVT: SCD GI: protonix NPO Case reviewed and plan discussed with Dr Evette Camara, DO PGY1 <Carly Alas - Last Filed: 07/31/18 06:49> Results - Vital Signs Recent Vital Signs: Last Vital Signs Temp 99 F 07/30/18 15:30 Pulse 84 07/30/18 23:20 Resp 16 07/31/18 05:06 BP 109/65 07/30/18 23:20 Pulse Ox 99 07/30/18 23:20 - Labs Result Diagrams: 07/30/18 19:08 07/30/18 15:51 Labs: Laboratory Results - last 24 hr 07/30/18 07/30/18 07/30/18 15:51 15:51 15:51 WBC 25.4 H* RBC 4.83 Hgb 14.4 Hct 41.2 MCV 85.3 MCH 29.8 MCHC 35.0 RDW 12.9 Plt Count 260 MPV 10.7 Neut % (Auto) 95.5 H Lymph % (Auto) 3.8 L [place] % (Auto) 0.6 L Eos % (Auto) 0.0 L Baso % (Auto) 0.1 Lymph # (Auto) 1.0 L [place] # (Auto) 0.2 Eos # (Auto) 0.0 Baso # (Auto) 0.02 Absolute Neuts (auto) 24.21 H Neutrophils % (Manual) 91 H Band Neutrophils % 4 H Lymphocytes % (Manual) 3 L Monocytes % (Manual) 2 Toxic Granulation Slight Platelet Evaluation Normal Anisocytosis (manual) Slight PT 15.0 H INR 1.35 APTT 33.6 pO2 31 VBG pH 7.30 L VBG pCO2 37.0 L VBG HCO3 18.2 L VBG Total CO2 19.3 L VBG O2 Sat (Calc) 57.7 VBG Base Excess -7.5 L VBG Potassium 3.6 Sodium 140.0 Chloride 99.0 Glucose 164 H Lactate 2.4 H FiO2 21.0 Crit Value Called To Dawn henson Crit Value Called By [facility] Blood Gas Notified Time 1600 Potassium Carbon Dioxide Anion Gap BUN Creatinine Est GFR ( Amer) Est GFR (Non-Af Amer) POC Glucose (mg/dL) Random Glucose Calcium Phosphorus Magnesium Total Bilirubin AST ALT Alkaline Phosphatase Total Protein Albumin Globulin Albumin/Globulin Ratio Lipase Beta HCG, Quant Venous Blood Potassium 3.6 Urine Color Urine Appearance Urine pH Ur Specific [place] Urine Protein Urine Glucose (UA) Urine Ketones Urine Blood Urine Nitrate Urine Bilirubin Urine Urobilinogen Ur Leukocyte Esterase Urine RBC Urine WBC Ur Epithelial Cells Urine Bacteria Urine Other Salicylates Acetaminophen Alcohol, Quantitative Blood Type Antibody Screen BBK History Checked 07/30/18 07/30/18 07/30/18 15:51 15:51 15:51 WBC RBC Hgb Hct MCV MCH MCHC RDW Plt Count MPV Neut % (Auto) Lymph % (Auto) Republic % (Auto) Eos % (Auto) Baso % (Auto) Lymph # (Auto) [place] # (Auto) Eos # (Auto) Baso # (Auto) Absolute Neuts (auto) Neutrophils % (Manual) Band Neutrophils % Lymphocytes % (Manual) Monocytes % (Manual) Toxic Granulation Platelet Evaluation Anisocytosis (manual) PT INR APTT pO2 VBG pH VBG pCO2 VBG HCO3 VBG Total CO2 VBG O2 Sat (Calc) VBG Base Excess VBG Potassium Sodium 141 Chloride 101 Glucose Lactate FiO2 Crit Value Called To Crit Value Called By Blood Gas Notified Time Potassium 3.9 Carbon Dioxide 18 L Anion Gap 26 H BUN 9 Creatinine 0.7 Est GFR ( Amer) > 60 Est GFR (Non-Af Amer) > 60 POC Glucose (mg/dL) Random Glucose 166 H Calcium 10.2 Phosphorus 4.6 H Magnesium 1.9 Total Bilirubin 0.7 AST 31 ALT 12 Alkaline Phosphatase 111 Total Protein 9.6 H Albumin 5.4 H Globulin 4.1 Albumin/Globulin Ratio 1.3 Lipase 34 Beta HCG, Quant Venous Blood Potassium Urine Color Urine Appearance Urine pH Ur Specific [place] Urine Protein Urine Glucose (UA) Urine Ketones Urine Blood Urine Nitrate Urine Bilirubin Urine Urobilinogen Ur Leukocyte Esterase Urine RBC Urine WBC Ur Epithelial Cells Urine Bacteria Urine Other Salicylates < 1 L Acetaminophen < 10.0 L Alcohol, Quantitative < 10 Blood Type Antibody Screen BBK History Checked 07/30/18 07/30/18 07/30/18 15:51 15:51 19:08 WBC 19.2 H D RBC 4.43 Hgb 13.0 Hct 37.7 MCV 85.1 MCH 29.3 MCHC 34.5 RDW 13.0 Plt Count 202 MPV 10.4 Neut % (Auto) 95.2 H Lymph % (Auto) 2.9 L [place] % (Auto) 1.8 Eos % (Auto) 0.0 L Baso % (Auto) 0.1 Lymph # (Auto) 0.6 L [place] # (Auto) 0.4 Eos # (Auto) 0.0 Baso # (Auto) 0.02 Absolute Neuts (auto) 18.26 H Neutrophils % (Manual) Band Neutrophils % Lymphocytes % (Manual) Monocytes % (Manual) Toxic Granulation Platelet Evaluation Anisocytosis (manual) PT INR APTT pO2 VBG pH VBG pCO2 VBG HCO3 VBG Total CO2 VBG O2 Sat (Calc) VBG Base Excess VBG Potassium Sodium Chloride Glucose Lactate FiO2 Crit Value Called To Crit Value Called By Blood Gas Notified Time Potassium Carbon Dioxide Anion Gap BUN Creatinine Est GFR ( Amer) Est GFR (Non-Af Amer) POC Glucose (mg/dL) Random Glucose Calcium Phosphorus Magnesium Total Bilirubin AST ALT Alkaline Phosphatase Total Protein Albumin Globulin Albumin/Globulin Ratio Lipase Beta HCG, Quant < 2.39 Venous Blood Potassium Urine Color Yellow Urine Appearance Slight-cloudy Urine pH 6.0 Ur Specific [place] >= 1.030 Urine Protein 100 H Urine Glucose (UA) Negative Urine Ketones >=80 Urine Blood Large H Urine Nitrate Negative Urine Bilirubin Negative Urine Urobilinogen 0.2 Ur Leukocyte Esterase Negative Urine RBC 25 - 30 H Urine WBC 2 - 5 Ur Epithelial Cells 6 - 8 H Urine Bacteria Many Urine Other Uyeast Salicylates Acetaminophen Alcohol, Quantitative Blood Type Antibody Screen BBK History Checked 07/30/18 07/30/18 07/30/18 19:08 20:05 21:13 WBC RBC Hgb Hct MCV MCH MCHC RDW Plt Count MPV Neut % (Auto) Lymph % (Auto) [place] % (Auto) Eos % (Auto) Baso % (Auto) Lymph # (Auto) [place] # (Auto) Eos # (Auto) Baso # (Auto) Absolute Neuts (auto) Neutrophils % (Manual) Band Neutrophils % Lymphocytes % (Manual) Monocytes % (Manual) Toxic Granulation Platelet Evaluation Anisocytosis (manual) PT INR APTT pO2 89 H VBG pH 7.26 L VBG pCO2 34.0 L VBG HCO3 15.3 L VBG Total CO2 16.3 L VBG O2 Sat (Calc) 98.1 H VBG Base Excess -10.8 L VBG Potassium 3.7 Sodium 138.0 Chloride 104.0 Glucose 131 H Lactate 1.5 FiO2 21.0 Crit Value Called To Crit Value Called By Blood Gas Notified Time Potassium Carbon Dioxide Anion Gap BUN Creatinine Est GFR ( Amer) Est GFR (Non-Af Amer) POC Glucose (mg/dL) 112 H Random Glucose Calcium Phosphorus Magnesium Total Bilirubin AST ALT Alkaline Phosphatase Total Protein Albumin Globulin Albumin/Globulin Ratio Lipase Beta HCG, Quant Venous Blood Potassium 3.7 Urine Color Urine Appearance Urine pH Ur Specific [place] Urine Protein Urine Glucose (UA) Urine Ketones Urine Blood Urine Nitrate Urine Bilirubin Urine Urobilinogen Ur Leukocyte Esterase Urine RBC Urine WBC Ur Epithelial Cells Urine Bacteria Urine Other Salicylates Acetaminophen Alcohol, Quantitative Blood Type O POSITIVE Antibody Screen Negative BBK History Checked No verified bt Attending/Attestation - Attestation I have personally seen and examined this patient.: Yes I have fully participated in the care of the patient.: Yes I have reviewed all pertinent clinical information: Yes Notes (Text): 07/31/18 06:48 Patient was seen when she was in [facility]. Medical record was reviewed. Agree with history , physical examination, assessment and plan.
[2018-07-31 05:06] VITALS: BMI 21.2
[2018-07-31] MEDS ORDERED: Pneumococcal 23-Valent Vaccine IM ONE (05:06)
[2018-07-31] MEDS: metroNIDAZOLE IV 500 mg/100 ml 500 MG/100 ML BAG IVPB SCH ×3 (07:04→21:53)
[2018-07-31] MEDS: Lactated Ringer's 1,000 ML IV SCH (07:04)
[2018-07-31 07:51] LABS: BASO # 0.03 K/mm3 (0.0-2.0); BASO % 0.2 % (0.0-3.0); EOS % 0.2 % (1.5-5.0); HEMOGLOBIN 11.3 g/dL (12.0-16.0); MEAN CELL VOLUME 85.2 fl (80.0-105.0); MEAN CORPUSCULAR HEMOGLOBIN 28.8 pg (25.0-35.0); MEAN CORPUSCULAR HGB CONC 33.8 g/dl (31.0-37.0); MEAN PLATELET VOLUME 10.1 fl (7.0-11.0); MONO # 1.1 (0.1-0.6); MONO % 8.3 % (1.0-6.0); RBC 3.92 10^6/uL (3.5-6.1); RED CELL DISTRIBUTION WIDTH 13.2 % (11.5-14.5); WHITE BLOOD COUNT 13.7 10^3/uL (4.5-11.0)
[2018-07-31 08:16] LABS: ALB/GLOB RATIO 1.4 (1.1-1.8); ALBUMIN 3.9 g/dL (3.0-4.8); ALT/SGPT 16 U/L (7-56); AST/SGOT 24 U/L (14-36); BLOOD UREA NITROGEN 3 mg/dL (7-21); CALCIUM 8.8 mg/dL (8.4-10.5); GFR NON-AFRICAN AMERICAN > 60
[2018-07-31] MEDS ORDERED: Midazolam 2 MG/2 ML VIAL ONE (08:57)
[2018-07-31] MEDS ORDERED: Rocuronium 10 mg/ml (5 ml) ONE (08:57)
[2018-07-31] MEDS ORDERED: Propofol 10 mg/ml Inj (20 ML) ONE (08:57)
[2018-07-31] MEDS ORDERED: Succinylcholine 200 mg/10 ml Inj IV ONE (08:57)
[2018-07-31] MEDS ORDERED: Sevoflurane - Inhalation Anesthetic Liq (250 ml) ONE (08:58)
[2018-07-31] MEDS ORDERED: Lidocaine 1% Inj (20ml) ONE (09:01)
[2018-07-31] MEDS ORDERED: ePHEDrine 50 mg/ml Inj ONE (09:11)
[2018-07-31] MEDS ORDERED: cefTRIAXone (Rocephin) 1 gm Inj ONE (09:27)
[2018-07-31] MEDS ORDERED: Bupivacaine 0.5% 50 ML IJ ONE ×2 (09:29)
[2018-07-31] MEDS ORDERED: cefTRIAXone 1 gm 1 GM/100 ML BAG IVPB SCH (10:00)
[2018-07-31] MEDS ORDERED: Neostigmine Methylsulfate 3mg/3ml Syringe IV ONE (10:15)
--- NOTE | 2018-07-31 10:35 | CT ---
Date of service: 07/30/2018 PROCEDURE: CT Abdomen and Pelvis with contrast HISTORY: suprapubic pain COMPARISON: None available TECHNIQUE: Contrast dose: 100 mL Omnipaque 350 IV Radiation dose: Total exam DLP = 291.07 mGy-cm. This CT exam was performed using one or more of the following dose reduction techniques: Automated exposure control, adjustment of the mA and/or kV according to patient size, and/or use of iterative reconstruction technique. FINDINGS: LOWER THORAX: No visible consolidation, pleural effusion, or pneumothorax. LIVER: Unremarkable. GALLBLADDER AND BILE DUCTS: Unremarkable. PANCREAS: Unremarkable. SPLEEN: Unremarkable. ADRENALS: Unremarkable. KIDNEYS AND URETERS: The kidneys enhance symmetrically. No hydronephrosis or obstructing calculus identified. VASCULATURE: No aortic aneurysm. No atherosclerotic calcification or mural plaque present. BOWEL: Stomach is nondistended. Lack of oral contrast limits evaluation for bowel pathology. Bowel loops appear within normal limits of caliber without evidence of obstruction. Colonic wall thickening may be exaggerated by under distension however colitis is not excluded; correlate clinically. APPENDIX: The appendix measures approximately 9 mm in diameter and contains fluid suspicious for acute appendicitis. Correlate clinically. PERITONEUM: No significant free fluid. No definite free air. LYMPH NODES: Scattered prominent mesenteric lymph nodes, nonspecific. BLADDER: Unremarkable. REPRODUCTIVE: The uterus is present. BONES: No acute osseous abnormality is detected. OTHER FINDINGS: None. IMPRESSION: The appendix is dilated measuring approximately 9 mm and contains fluid; correlate clinically for acute appendicitis. Thick-walled appearance of the colon may be exaggerated by extent of under distension, however colitis is not excluded. Correlate clinically. Nonspecific prominent mesenteric adenopathy; mesenteric adenitis not excluded. Preliminary impression was provided by [employer].
[2018-07-31] MEDS ORDERED: HYDROmorphone 0.5 mg/0.5 ml ISec IVP PRN (10:48)
[2018-07-31] MEDS ORDERED: HYDROmorphone 0.5 mg/0.5 ml ISec ONE (10:52)
[2018-07-31] MEDS ORDERED: Lactated Ringer's 1,000 ML IV SCH (11:00)
--- NOTE | 2018-07-31 12:55 | PCM.SURG1 ---
Surgeon's Initial Post Op Note - Surgeon's Notes Surgeon: Dr. De La Cruz Multicut Line Operator: Dr. Nava PGY-4, Dr. Umaña PGY-1 Type of Anesthesia: General Endo, Local Pre-Operative Diagnosis: Acute appendicitis Operative Findings: Appendix tip inflammed Post-Operative Diagnosis: Appendicitis Operation Performed: Laparoscopic appendectomy Specimen/Specimens Removed: appendix Estimated Blood Loss: EBL {In ML}: 10 Blood Products Given: N/A Drains Used: No Drains Post-Op Condition: Good Date of Surgery/Procedure: 07/31/18 Time of Surgery/Procedure: 09:00
[2018-07-31] MEDS: Morphine 2 mg/ml ISec IVP PRN (18:59)
[2018-08-01] MEDS: Morphine 2 mg/ml ISec IVP PRN ×3 (00:17→13:40)
[2018-08-01] MEDS: metroNIDAZOLE IV 500 mg/100 ml 500 MG/100 ML BAG IVPB SCH (06:19)
--- NOTE | 2018-08-01 06:34 | CP.PCM.PN ---
Subjective - Date & Time of Evaluation Date of Evaluation: 08/01/18 Time of Evaluation: 06:31 - Subjective Subjective: Surgery Progress Note for Dr. De La Cruz 23F seen and evaluated at bedside this morning. Patient had multiple bouts of nausea and 10/10 abdominal pain throughout the night. Patient unable to sleep well however symptoms have improved as of this morning. Continues to ambulate. Last emesis yesterday after lunch. Afebrile. Denies f/c, v/d, SOB, CP, or urinary symptoms. Objective - Vital Signs/Intake and Output Vital Signs (last 24 hours): Temp Pulse Resp BP Pulse Ox 98.2 F 69 16 116/72 99 07/31/18 23:01 07/31/18 23:01 07/31/18 23:01 07/31/18 23:01 07/31/18 23:01 Intake and Output: 07/31/18 08/01/18 18:59 06:59 Intake Total 260 660 Balance 260 660 - Medications Medications: Current Medications Famotidine (Pepcid) 40 mg PO DAILY [facility] Ceftriaxone Sodium (Rocephin 1 Gram Ivpb) 1 gm in 100 mls @ 100 mls/hr IVPB DAILY [facility]; Protocol Metronidazole (Flagyl) 500 mg in 100 mls @ 100 mls/hr IVPB Q8 AZAEL; Protocol Last Admin: 08/01/18 06:19 Dose: 100 mls/hr Morphine Sulfate (Morphine) 2 mg IVP Q6H PRN PRN Reason: Pain, severe (8-10) Last Admin: 08/01/18 06:20 Dose: 2 mg Ondansetron HCl (Zofran Inj) 4 mg IVP Q4H PRN PRN Reason: Nausea/Vomiting Last Admin: 08/01/18 04:19 Dose: 4 mg Tramadol HCl (Ultram) 50 mg PO TID PRN PRN Reason: Pain, moderate (4-7) Last Admin: 07/31/18 22:47 Dose: 50 mg - Labs Labs: 07/31/18 07:30 07/31/18 07:30 PT 15.0 SECONDS (9.4-12.5) H 07/30/18 15:51 INR 1.35 07/30/18 15:51 APTT 33.6 Seconds (26.9-38.3) 04/25/19 15:51 - Constitutional Appears: Non-toxic, No Acute Distress - Head Exam Head Exam: ATRAUMATIC, NORMAL INSPECTION, NORMOCEPHALIC - Eye Exam Eye Exam: EOMI Pupil Exam: PERRL - ENT Exam ENT Exam: Mucous Membranes Moist - Respiratory Exam Respiratory Exam: NORMAL BREATHING PATTERN. absent: Wheezes, Respiratory Distress - Cardiovascular Exam Cardiovascular Exam: REGULAR RHYTHM, +S1, +S2 - GI/Abdominal Exam GI & Abdominal Exam: Soft, Tenderness, Normal Bowel Sounds. absent: Distended, Guarding, Rigid, Rebound - Extremities Exam Extremities Exam: Normal Inspection - Neurological Exam Neurological Exam: Alert, Awake, Oriented x3 - Psychiatric Exam Psychiatric exam: Anxious - Skin Skin Exam: Dry, Intact, Normal Color, Warm Additional comments: surgical site dressing c/d/i Assessment and Plan - Assessment and Plan (Free Text) Assessment: 23F s/p laparoscopic appendectomy POD1 Plan: Continue to monitor diet tolerance Continue to monitor bowel function Pain control and antiemetics PRN Encourage ambulation and IS use If patient is tolerating a regular diet, without nausea or vomiting, she is cleared for discharge from a surgical standpoint Patient is to follow up with Dr. De La Cruz in his office in 2 weeks Please call in advance for an appointment Keven Umaña PGY1
[2018-08-01 08:02] LABS: BASO # 0.01 K/mm3 (0.0-2.0); BASO % 0.1 % (0.0-3.0); HEMOGLOBIN 11.4 g/dL (12.0-16.0); LYMPH # 2.2 (1.2-3.4); LYMPH % 16.6 % (22.0-35.0); MEAN CELL VOLUME 85.5 fl (80.0-105.0); MEAN CORPUSCULAR HEMOGLOBIN 28.6 pg (25.0-35.0); MEAN CORPUSCULAR HGB CONC 33.4 g/dl (31.0-37.0); MEAN PLATELET VOLUME 10.8 fl (7.0-11.0); MONO # 1.3 (0.1-0.6); MONO % 9.3 % (1.0-6.0); RBC 3.99 10^6/uL (3.5-6.1); WHITE BLOOD COUNT 13.4 10^3/uL (4.5-11.0)
[2018-08-01 08:28] LABS: ALB/GLOB RATIO 1.4 (1.1-1.8); ALT/SGPT 24 U/L (7-56); AST/SGOT 28 U/L (14-36); BLOOD UREA NITROGEN 3 mg/dL (7-21); CALCIUM 9.1 mg/dL (8.4-10.5); GFR NON-AFRICAN AMERICAN > 60
--- NOTE | 2018-08-01 13:29 | CP.PCM.PN ---
<Kvng Hamlin - Last Filed: 08/01/18 13:20> Subjective - Date & Time of Evaluation Date of Evaluation: 08/01/18 Time of Evaluation: 13:20 - Subjective Subjective: Kvng Hamlin, PGY-1, Internal Medicine Progress Note for Dr. Avila Patient seen and evaluated at bedside. Patient had episodes of vomiting after breakfast and lunch. Patient reports significantly improved pain today, but continues to report nausea. 12-point ROS was unremarkable except for what was mentioned above. Objective - Vital Signs/Intake and Output Vital Signs (last 24 hours): Temp Pulse Resp BP Pulse Ox 98.6 F 61 16 109/67 99 08/01/18 06:00 08/01/18 06:00 08/01/18 06:00 08/01/18 06:00 08/01/18 06:00 Intake and Output: 08/01/18 08/01/18 06:59 18:59 Intake Total 660 Balance 660 - Medications Medications: Current Medications Famotidine (Pepcid) 40 mg PO DAILY AZAEL Last Admin: 08/01/18 10:28 Dose: 40 mg Metoclopramide HCl (Reglan) 10 mg IVP ACHS PRN PRN Reason: Nausea/Vomiting Last Admin: 08/01/18 12:08 Dose: 10 mg Morphine Sulfate (Morphine) 2 mg IVP Q6H PRN PRN Reason: Pain, severe (8-10) Last Admin: 08/01/18 06:20 Dose: 2 mg Ondansetron HCl (Zofran Inj) 4 mg IVP Q4H PRN PRN Reason: Nausea/Vomiting Last Admin: 08/01/18 10:27 Dose: 4 mg Tramadol HCl (Ultram) 50 mg PO TID PRN PRN Reason: Pain, moderate (4-7) Last Admin: 07/31/18 22:47 Dose: 50 mg - Labs Labs: 08/01/18 07:00 08/01/18 07:00 PT 15.0 SECONDS (9.4-12.5) H 07/30/18 15:51 INR 1.35 07/30/18 15:51 APTT 33.6 Seconds (26.9-38.3) 07/30/18 15:51 - Constitutional Appears: Non-toxic, No Acute Distress - Head Exam Head Exam: ATRAUMATIC, NORMAL INSPECTION, NORMOCEPHALIC - Eye Exam Eye Exam: EOMI Pupil Exam: PERRL - ENT Exam ENT Exam: Mucous Membranes Moist - Respiratory Exam Respiratory Exam: NORMAL BREATHING PATTERN. absent: Wheezes, Respiratory Distress - Cardiovascular Exam Cardiovascular Exam: REGULAR RHYTHM, +S1, +S2 - GI/Abdominal Exam GI & Abdominal Exam: Soft, Tenderness, Normal Bowel Sounds. surgical site is clean at this time. absent: Distended, Guarding, Rigid, Rebound - Extremities Exam Extremities Exam: Normal Inspection - Neurological Exam Neurological Exam: Alert, Awake, Oriented x3 - Psychiatric Exam Psychiatric exam: Anxious - Skin Skin Exam: Dry, Intact, Normal Color, Warm Additional comments: surgical site dressing is clean at this time. Assessment and Plan - Assessment and Plan (Free Text) Assessment: 23 year old female with past medical history of PCOS, GERD presents with appendicitis. Patient is status post appendectomy. Plan: Appendicitis -CT Abdomen and Pelvis on 07/30: dilated appendix at 9mm and contains fluid; thick walled appearance of colon may be exaggerated by extent of under distension, however, colitis cannot be excluded. -Patient is status post appendectomy POD day 1 -Leukocytosis downtrending -Stopped antibiotics -Continue with morphine 2 mg Q6PRN and tramadol 50 mg TID PRN for pain -Continue with zofran, reglan for nausea and vomiting. -Continue with cleaning of surgical site as per surgical team. Constipation -Patient continues to be constipated after appendectomy -Continue regular diet as tolerated -Will monitor for bowel movements. -Constipation likely 2/2 to low PO intake and recent surgery. Will continue to monitor for bowel movements. GERD -Continue with protonix GI prophylaxis: protonix DVT prophylaxis: SCD Patient plan discussed with Dr. Avila <Klarissa Avila - Last Filed: 08/02/18 10:05> Objective - Vital Signs/Intake and Output Vital Signs (last 24 hours): Temp Pulse Resp BP Pulse Ox 98.7 F 58 L 18 135/78 98 08/01/18 22:00 08/01/18 22:00 08/01/18 22:00 08/01/18 22:00 08/01/18 22:00 - Labs Labs: 08/01/18 07:00 08/01/18 07:00 PT 15.0 SECONDS (9.4-12.5) H 07/30/18 15:51 INR 1.35 07/30/18 15:51 APTT 33.6 Seconds (26.9-38.3) 07/30/18 15:51 Attending/Attestation - Attestation I have personally seen and examined this patient.: Yes I have fully participated in the care of the patient.: Yes I have reviewed all pertinent clinical information, including history, physical exam and plan: Yes Notes (Text): Patient seen and examined by me with resident at approximately at 10:15AM on 08/01/18. Case including HPI, physical exam, and assessment and plan discussed with resident. Agree with above with following additions/corrections. Patient is a 23-year-old female past medical history significant for PCOS and GERD that presented to the emergency room with abdominal pain, nausea, and vomiting for 3 days. Patient she is feeling better. She states that she had a rough night. Patient states that she had nausea and vomiting. Abdominal pain is improved. Patient has not tried breakfast yet. Patient has had a little flatus and burping. No fevers or chills. No headaches or dizziness. No dysuria. No chest pain or shortness of breath. Physical exam: General: Awake and alert sitting up in bed in no acute distress HEENT: Normocephalic, atraumatic. Extraocular muscles intact. Pupils equal and reactive, no scleral icterus. Oropharynx pink and moist. No pharyngeal erythema or exudate appreciated. Neck supple. Cardiovascular: Regular rhythm. Normal S1 and S2. No murmurs, rubs, or gallops appreciated Pulmonary: Normal respiratory effort. No rhonchi, rales, or wheezing appreciated Gastrointestinal: Soft. Mild distention. Positive generalized tenderness. Positive bowel sounds all 4 quadrants. No guarding. Musculoskeletal: Moves all extremities. No calf tenderness. No edema appreciated Central nervous system: AAO x3. No focal deficits appreciated. Dermatologic: Skin warm and dry. Assessment and plan: Patient is a 23-year-old female past medical history significant for PCOS and GERD that presented to the emergency room with abdominal pain, nausea, and vomiting for 3 days. 1. Acute appendicitis. Abdominal pain. Status post laparoscopic appendectomy 07/31/2018. Continue with pain management. Monitor bowel function. Advance diet as tolerated. Cytosis downtrending. Patient afebrile. CT abdomen and pelvis 07/30/2018 per radiologist showed appendix is dilated measuring approximately 9 mm and contains fluid; thick-walled appearance of the colon may be exaggerated by extent of underdistention; nonspecific prominent mesenteric adenopathy. 2. Nausea and vomiting. Continue Zofran as needed. Continue Reglan before meals and at bedtime as needed 3. GERD. Continue Pepcid Case discussed in detail with the patient regarding current diagnosis and treatment plan. All questions answered.
[2018-08-01 15:32] VITALS: RESP 18
[2018-08-01 22:54] VITALS: BP 135/78; PULSE 58; TEMP 98.7; O2SAT 98
--- NOTE | 2018-08-02 00:19 | CP.PCM.DIS ---
<Fermín Dowd - Last Filed: 08/02/18 00:19> Provider - Provider Date of Admission: 07/30/18 21:06 Attending physician: Klarissa Avila DO Primary care physician: NO PRIMARY CARE PROVIDER Consults: 07/30/18 21:12 Consult [Physician Consult] Stat Comment: Consulting Provider: Landon De La Cruz Consulting Physician: Landon De La Cruz Reason for Consult: appendicitis Time Spent in preparation of Discharge (in minutes): 45 Diagnosis - Discharge Diagnosis (1) Abdominal cramping Status: Acute (2) Appendicitis Status: Resolved (3) Intractable vomiting Status: Acute (4) Leukocytosis Status: Acute Hospital Course - Lab Results Lab Results: Micro Results 07/30/18 19:08 Urine Random Urine Culture - Final Beta Hemolytic Strep Group B Most Recent Lab Values WBC 13.4 10^3/uL (4.5-11.0) H 08/01/18 07:00 RBC 3.99 10^6/uL (3.5-6.1) 08/01/18 07:00 Hgb 11.4 g/dL (12.0-16.0) L 08/01/18 07:00 Hct 34.1 % (36.0-48.0) L 08/01/18 07:00 MCV 85.5 fl (80.0-105.0) 08/01/18 07:00 MCH 28.6 pg (25.0-35.0) 08/01/18 07:00 MCHC 33.4 g/dl (31.0-37.0) 08/01/18 07:00 RDW 13.0 % (11.5-14.5) 08/01/18 07:00 Plt Count 198 10^3/uL (120.0-450.0) 08/01/18 07:00 MPV 10.8 fl (7.0-11.0) 08/01/18 07:00 Neut % (Auto) 74.0 % (50.0-68.0) H 08/01/18 07:00 Lymph % (Auto) 16.6 % (22.0-35.0) L 08/01/18 07:00 [place] % (Auto) 9.3 % (1.0-6.0) H 08/01/18 07:00 Eos % (Auto) 0.0 % (1.5-5.0) L 08/01/18 07:00 Baso % (Auto) 0.1 % (0.0-3.0) 08/01/18 07:00 Lymph # (Auto) 2.2 (1.2-3.4) 08/01/18 07:00 [place] # (Auto) 1.3 (0.1-0.6) H 08/01/18 07:00 Eos # (Auto) 0.0 (0.0-0.7) 08/01/18 07:00 Baso # (Auto) 0.01 K/mm3 (0.0-2.0) 08/01/18 07:00 Absolute Neuts (auto) 9.93 (1.4-6.5) H 08/01/18 07:00 Neutrophils % (Manual) 91 % (50.0-70.0) H 07/30/18 15:51 Band Neutrophils % 4 % (0-2) H 07/30/18 15:51 Lymphocytes % (Manual) 3 % (22.0-35.0) L 07/30/18 15:51 Monocytes % (Manual) 2 % (1.0-6.0) 07/30/18 15:51 Toxic Granulation Slight 07/30/18 15:51 Platelet Evaluation Normal (NORMAL) 07/30/18 15:51 Anisocytosis (manual) Slight 07/30/18 15:51 PT 15.0 SECONDS (9.4-12.5) H 07/30/18 15:51 INR 1.35 07/30/18 15:51 APTT 33.6 Seconds (26.9-38.3) 07/30/18 15:51 pO2 89 mm/Hg (30-55) H 07/30/18 19:08 VBG pH 7.26 (7.32-7.43) L 07/30/18 19:08 VBG pCO2 34.0 (40-60) L 07/30/18 19:08 VBG HCO3 15.3 mmol/l (21-28) L 07/30/18 19:08 VBG Total CO2 16.3 mmol.L (22-28) L 07/30/18 19:08 VBG O2 Sat (Calc) 98.1 % (40-65) H 07/30/18 19:08 VBG Base Excess -10.8 mmol/L (0.0-2.0) L 07/30/18 19:08 VBG Potassium 3.7 mmol/L (3.6-5.2) 07/30/18 19:08 Sodium 138.0 mmol/L (132-148) 07/30/18 19:08 Chloride 104.0 mmol/L (98-107) 07/30/18 19:08 Glucose 131 mg/dl (65-105) H 07/30/18 19:08 Lactate 1.5 mmol/L (0.7-2.1) 07/30/18 19:08 FiO2 21.0 % 07/30/18 19:08 Crit Value Called To Dawn henson 07/30/18 15:51 Crit Value Called By Delia 07/30/18 15:51 Blood Gas Notified Time 1600 07/30/18 15:51 Sodium 140 mmol/L (132-148) 08/01/18 07:00 Potassium 3.6 mmol/L (3.6-5.0) 08/01/18 07:00 Chloride 101 mmol/L (98-107) 08/01/18 07:00 Carbon Dioxide 25 mmol/L (21-33) 08/01/18 07:00 Anion Gap 17 (10-20) 08/01/18 07:00 BUN 3 mg/dL (7-21) L 08/01/18 07:00 Creatinine 0.6 mg/dl (0.7-1.2) L 08/01/18 07:00 Est GFR ( Amer) > 60 08/01/18 07:00 Est GFR (Non-Af Amer) > 60 08/01/18 07:00 POC Glucose (mg/dL) 112 mg/dL (65-110) H 07/30/18 20:05 Random Glucose 81 mg/dL (70-110) 08/01/18 07:00 Calcium 9.1 mg/dL (8.4-10.5) 08/01/18 07:00 Phosphorus 3.1 mg/dL (2.5-4.5) 07/31/18 07:30 Magnesium 2.1 mg/dL (1.7-2.2) 07/31/18 07:30 Total Bilirubin 0.6 mg/dL (0.2-1.3) 08/01/18 07:00 AST 28 U/L (14-36) 08/01/18 07:00 ALT 24 U/L (7-56) 08/01/18 07:00 Alkaline Phosphatase 73 U/L (38-126) 08/01/18 07:00 Total Protein 6.9 g/dL (5.8-8.3) 08/01/18 07:00 Albumin 4.0 g/dL (3.0-4.8) 08/01/18 07:00 Globulin 2.9 gm/dL 08/01/18 07:00 Albumin/Globulin Ratio 1.4 (1.1-1.8) 08/01/18 07:00 Lipase 34 U/L (23-300) 07/30/18 15:51 Beta HCG, Quant < 2.39 mIU/mL (0-6.15) 07/30/18 15:51 Venous Blood Potassium 3.7 mmol/L (3.6-5.2) 07/30/18 19:08 Urine Color Yellow (YELLOW) 07/30/18 15:51 Urine Appearance Slight-cloudy (CLEAR) 07/30/18 15:51 Urine pH 6.0 (4.7-8.0) 07/30/18 15:51 Ur Specific [place] >= 1.030 (1.005-1.035) 07/30/18 15:51 Urine Protein 100 mg/dL (<30 mg/dL) H 07/30/18 15:51 Urine Glucose (UA) Negative mg/dL (NEGATIVE) 07/30/18 15:51 Urine Ketones >=80 mg/dL (NEGATIVE) 07/30/18 15:51 Urine Blood Large (NEGATIVE) H 07/30/18 15:51 Urine Nitrate Negative (NEGATIVE) 07/30/18 15:51 Urine Bilirubin Negative (NEGATIVE) 07/30/18 15:51 Urine Urobilinogen 0.2 E.U./dL (<1 E.U./dL) 07/30/18 15:51 Ur Leukocyte Esterase Negative Syed/uL (NEGATIVE) 07/30/18 15:51 Urine RBC 25 - 30 /hpf (0-2) H 07/30/18 15:51 Urine WBC 2 - 5 /hpf (0-6) 07/30/18 15:51 Ur Epithelial Cells 6 - 8 /hpf (0-5) H 07/30/18 15:51 Urine Bacteria Many /hpf (NONE) 07/30/18 15:51 Urine Other Uyeast /hpf 07/30/18 15:51 Salicylates < 1 mg/dL (2.0-20.0) L 07/30/18 15:51 Acetaminophen < 10.0 ug/ml (10.0-20.0) L 07/30/18 15:51 Alcohol, Quantitative < 10 mg/dL (0-10) 07/30/18 15:51 Blood Type O POSITIVE 07/30/18 21:13 Blood Type Confirm O POSITIVE 07/31/18 07:30 Antibody Screen Negative 07/30/18 21:13 BBK History Checked No verified bt 07/30/18 21:13 - Hospital Course Hospital Course: HPI: 23 y/o female with PMH of PCOS, GERD presents to the ED with diffuse abd pain x3 days. She started to have NBNB vomiting today, watery/non bloody diarrhea, fever, chills, diaphoresis. She is currenttly menestruating and reports taking 16 midol in last 32 hours for her mentrual cramping that did not help. She reports having similar symptoms years ago. Denies urinary symptoms, CP, palpitations, cough, headache. Hospital course: Appendicitis -Patient is status post appendectomy on 07/31/2018 -CT Abdomen and Pelvis on 07/30: dilated appendix at 9mm and contains fluid; thick walled appearance of colon may be exaggerated by extent of under di stension, however, colitis cannot be excluded. -Leukocytosis downtrending -Stopped antibiotics -Continue with morphine 2 mg Q6PRN and tramadol 50 mg TID PRN for pain -Continue with zofran, reglan for nausea and vomiting. -Continue with cleaning of surgical site as per surgical team. Constipation -Patient continues to be constipated after appendectomy -Continue regular diet as tolerated -Will monitor for bowel movements. -Constipation likely 2/2 to low PO intake and recent surgery. Will continue to monitor for bowel movements. GERD -Continue with protonix Patient left AMA at 12:20AM on 08/02/2018. Risks were discussed with patient for leaving against medical advice. Discharge Exam - Head Exam Head Exam: ATRAUMATIC, NORMAL INSPECTION, NORMOCEPHALIC Discharge Plan - Follow Up Plan Condition: FAIR Disposition: HOME/ ROUTINE Instructions: Appendectomy, Laparoscopic Surgery Additional Instructions: 1. Please take over the counter tylenol and ibuprofen (could be substituted for motrin or alleve) for pain as needed. Please take ibuprofen with food to avoid gastritis. 2. Please follow up with [facility] on FridayAugust 10 at 3:00 PM located on the ground floor of this hospital. 3. Please follow up with your surgeon, Dr. De La Cruz, within 1 week of discharge from the hospital. 4. No heavy lifting until seen by Dr. De La Cruz outpatient. You can use soap and warm water to keep area clean. Please do not soak the surgical site while showering. Do not pick at surgical site. 4. Please return to the emergency room if you have any new or concerning symptoms. Referrals: [facility] [Provider Group] PCP,SUDHAKAR [Primary Care Provider] - Landon De La Cruz MD [Staff Provider] - <Carly Alas - Last Filed: 08/02/18 02:20> Provider - Provider Date of Admission: 07/30/18 21:06 Attending physician: Klarissa Avila DO Primary care physician: SUDHAKAR PRIMARY CARE PROVIDER Consults: 07/30/18 21:12 Consult [Physician Consult] Stat Comment: Consulting Provider: Landon De La Cruz Consulting Physician: Landon De La Cruz Reason for Consult: appendicitis Hospital Course - Lab Results Lab Results: Micro Results 07/30/18 19:08 Urine Random Urine Culture - Final Beta Hemolytic Strep Group B Most Recent Lab Values WBC 13.4 10^3/uL (4.5-11.0) H 08/01/18 07:00 RBC 3.99 10^6/uL (3.5-6.1) 08/01/18 07:00 Hgb 11.4 g/dL (12.0-16.0) L 08/01/18 07:00 Hct 34.1 % (36.0-48.0) L 08/01/18 07:00 MCV 85.5 fl (80.0-105.0) 08/01/18 07:00 MCH 28.6 pg (25.0-35.0) 08/01/18 07:00 MCHC 33.4 g/dl (31.0-37.0) 08/01/18 07:00 RDW 13.0 % (11.5-14.5) 08/01/18 07:00 Plt Count 198 10^3/uL (120.0-450.0) 08/01/18 07:00 MPV 10.8 fl (7.0-11.0) 08/01/18 07:00 Neut % (Auto) 74.0 % (50.0-68.0) H 08/01/18 07:00 Lymph % (Auto) 16.6 % (22.0-35.0) L 08/01/18 07:00 [place] % (Auto) 9.3 % (1.0-6.0) H 08/01/18 07:00 Eos % (Auto) 0.0 % (1.5-5.0) L 08/01/18 07:00 Baso % (Auto) 0.1 % (0.0-3.0) 08/01/18 07:00 Lymph # (Auto) 2.2 (1.2-3.4) 08/01/18 07:00 [place] # (Auto) 1.3 (0.1-0.6) H 08/01/18 07:00 Eos # (Auto) 0.0 (0.0-0.7) 08/01/18 07:00 Baso # (Auto) 0.01 K/mm3 (0.0-2.0) 08/01/18 07:00 Absolute Neuts (auto) 9.93 (1.4-6.5) H 08/01/18 07:00 Neutrophils % (Manual) 91 % (50.0-70.0) H 07/30/18 15:51 Band Neutrophils % 4 % (0-2) H 07/30/18 15:51 Lymphocytes % (Manual) 3 % (22.0-35.0) L 07/30/18 15:51 Monocytes % (Manual) 2 % (1.0-6.0) 07/30/18 15:51 Toxic Granulation Slight 07/30/18 15:51 Platelet Evaluation Normal (NORMAL) 07/30/18 15:51 Anisocytosis (manual) Slight 07/30/18 15:51 PT 15.0 SECONDS (9.4-12.5) H 07/30/18 15:51 INR 1.35 07/30/18 15:51 APTT 33.6 Seconds (26.9-38.3) 07/30/18 15:51 pO2 89 mm/Hg (30-55) H 07/30/18 19:08 VBG pH 7.26 (7.32-7.43) L 07/30/18 19:08 VBG pCO2 34.0 (40-60) L 07/30/18 19:08 VBG HCO3 15.3 mmol/l (21-28) L 07/30/18 19:08 VBG Total CO2 16.3 mmol.L (22-28) L 07/30/18 19:08 VBG O2 Sat (Calc) 98.1 % (40-65) H 07/30/18 19:08 VBG Base Excess -10.8 mmol/L (0.0-2.0) L 07/30/18 19:08 VBG Potassium 3.7 mmol/L (3.6-5.2) 07/30/18 19:08 Sodium 138.0 mmol/L (132-148) 07/30/18 19:08 Chloride 104.0 mmol/L (98-107) 07/30/18 19:08 Glucose 131 mg/dl (65-105) H 07/30/18 19:08 Lactate 1.5 mmol/L (0.7-2.1) 07/30/18 19:08 FiO2 21.0 % 07/30/18 19:08 Crit Value Called To Dawn henson 07/30/18 15:51 Crit Value Called By Atc 07/30/18 15:51 Blood Gas Notified Time 1600 07/30/18 15:51 Sodium 140 mmol/L (132-148) 08/01/18 07:00 Potassium 3.6 mmol/L (3.6-5.0) 08/01/18 07:00 Chloride 101 mmol/L (98-107) 08/01/18 07:00 Carbon Dioxide 25 mmol/L (21-33) 08/01/18 07:00 Anion Gap 17 (10-20) 08/01/18 07:00 BUN 3 mg/dL (7-21) L 08/01/18 07:00 Creatinine 0.6 mg/dl (0.7-1.2) L 08/01/18 07:00 Est GFR ( Amer) > 60 08/01/18 07:00 Est GFR (Non-Af Amer) > 60 08/01/18 07:00 POC Glucose (mg/dL) 112 mg/dL (65-110) H 07/30/18 20:05 Random Glucose 81 mg/dL (70-110) 08/01/18 07:00 Calcium 9.1 mg/dL (8.4-10.5) 08/01/18 07:00 Phosphorus 3.1 mg/dL (2.5-4.5) 07/31/18 07:30 Magnesium 2.1 mg/dL (1.7-2.2) 07/31/18 07:30 Total Bilirubin 0.6 mg/dL (0.2-1.3) 08/01/18 07:00 AST 28 U/L (14-36) 08/01/18 07:00 ALT 24 U/L (7-56) 08/01/18 07:00 Alkaline Phosphatase 73 U/L (38-126) 08/01/18 07:00 Total Protein 6.9 g/dL (5.8-8.3) 08/01/18 07:00 Albumin 4.0 g/dL (3.0-4.8) 08/01/18 07:00 Globulin 2.9 gm/dL 08/01/18 07:00 Albumin/Globulin Ratio 1.4 (1.1-1.8) 08/01/18 07:00 Lipase 34 U/L (23-300) 07/30/18 15:51 Beta HCG, Quant < 2.39 mIU/mL (0-6.15) 07/30/18 15:51 Venous Blood Potassium 3.7 mmol/L (3.6-5.2) 07/30/18 19:08 Urine Color Yellow (YELLOW) 07/30/18 15:51 Urine Appearance Slight-cloudy (CLEAR) 07/30/18 15:51 Urine pH 6.0 (4.7-8.0) 07/30/18 15:51 Ur Specific [place] >= 1.030 (1.005-1.035) 07/30/18 15:51 Urine Protein 100 mg/dL (<30 mg/dL) H 07/30/18 15:51 Urine Glucose (UA) Negative mg/dL (NEGATIVE) 07/30/18 15:51 Urine Ketones >=80 mg/dL (NEGATIVE) 07/30/18 15:51 Urine Blood Large (NEGATIVE) H 07/30/18 15:51 Urine Nitrate Negative (NEGATIVE) 07/30/18 15:51 Urine Bilirubin Negative (NEGATIVE) 07/30/18 15:51 Urine Urobilinogen 0.2 E.U./dL (<1 E.U./dL) 07/30/18 15:51 Ur Leukocyte Esterase Negative Syed/uL (NEGATIVE) 07/30/18 15:51 Urine RBC 25 - 30 /hpf (0-2) H 07/30/18 15:51 Urine WBC 2 - 5 /hpf (0-6) 07/30/18 15:51 Ur Epithelial Cells 6 - 8 /hpf (0-5) H 07/30/18 15:51 Urine Bacteria Many /hpf (NONE) 07/30/18 15:51 Urine Other Uyeast /hpf 07/30/18 15:51 Salicylates < 1 mg/dL (2.0-20.0) L 07/30/18 15:51 Acetaminophen < 10.0 ug/ml (10.0-20.0) L 07/30/18 15:51 Alcohol, Quantitative < 10 mg/dL (0-10) 07/30/18 15:51 Blood Type O POSITIVE 07/30/18 21:13 Blood Type Confirm O POSITIVE 07/31/18 07:30 Antibody Screen Negative 07/30/18 21:13 BBK History Checked No verified bt 07/30/18 21:13 Attending/Attestation - Attestation I have personally seen and examined this patient.: Yes I have fully participated in the care of the patient.: Yes I have reviewed all pertinent clinical information, including history, physical exam and plan: Yes
--- NOTE | 2018-08-03 08:31 | OP ---
PROCEDURE DATE: 07/31/2018 SURGEON: Landon De La Cruz MD GOODWILL AMBASSADOR: Faye Nava DO and Keven Umaña DO ANESTHESIA: General. PREOPERATIVE DIAGNOSIS: Acute appendicitis. POSTOPERATIVE DIAGNOSIS: Acute appendicitis. PROCEDURE: Laparoscopic appendectomy. INTRAOPERATIVE FINDINGS: The tip of the appendix was inflamed. ESTIMATED BLOOD LOSS: 10 mL. DRAINS: None. COMPLICATIONS: None. INDICATIONS: This is a 23-year-old female who presented with right lower quadrant pain and leukocytosis. CT and physical examinations were consistent with acute appendicitis. DESCRIPTION OF PROCEDURE: The patient was placed on the operating table in a supine position. General anesthesia was induced. A time-out was completed verifying the correct patient, procedure, site, positioning and any special equipment prior to the beginning of the procedure. The abdomen was prepped and draped in the usual sterile fashion. An incision was made in the natural skin line above the umbilicus. Fascia was elevated and the Veress needle was inserted. Proper position was confirmed with aspiration and saline meniscus test. A 12-mm trocar was then inserted using Visiport technique. The abdomen was insufflated with carbon dioxide to a pressure of 15 mmHg. The patient tolerated the insufflation well. A laparoscope was inserted and the abdomen inspected. No injuries from initial trocar placement were noted. Under direct visualization, a 5-mm trocar was inserted above the pubis symphysis and below the hairline and another 5-mm trocar was inserted into the left lower quadrant lateral to the rectus muscle. Care was taken to avoid injury to the bladder and inferior epigastric vessels. The appendix was identified. An atraumatic grasper was used to grasp the appendix and elevate it. The tip was noted to be inflamed. A window was developed in the mesoappendix to the point where the base of the appendix and the cecum meet. The mesoappendix was taken using harmonic. An endoscopic linear stapler was then use to divide and staple the base of the appendix. The appendix was placed in an endoscopic retrieval bag and removed via the 12-mm trocar site. The appendiceal stump was then irrigated and hemostasis was assured, fluid was suctioned. The laparoscope was then withdrawn and the umbilical trocar removed. The abdomen was allowed to collapse. The fascia was closed with 0-Vicryl on a UR-6 needle. Fascial closure was confirmed using a 5 mm laparoscope through one of the 5 mm sites. The skin was then closed with subcuticular 4-0 Monocryl and Dermabond. The patient tolerated the procedure well and was taken to the PACU in satisfactory condition. Faye Nava DO Landon De La Cruz MD
== END 2018-08-02 02:41 | disposition left against medical advice (07) | DRG 225 ==
LOC: ED 14:50 → ERH 21:06 → 5RSO 23:57
PROVIDERS: ADMIT Hospitalist; ATTEND Hospitalist
PROC: 0DTJ4ZZ Resection of Appendix, Percutaneous Endoscopic Approach (ICD-10-PCS; principal; 2018-07-31 09:00)
DX: K35.80 Unspecified acute appendicitis (principal); E28.2 Polycystic ovarian syndrome; K21.9 Gastro-esophageal reflux disease without esophagitis; K59.00 Constipation, unspecified

== ENCOUNTER 2018-08-02 10:23 | Inpatient (IN) | payer MEDICAID, OTHER ==
--- NOTE | 2018-08-02 11:57 | ED PDOC ---
Arrival/HPI - General Chief Complaint: Abdominal Pain Time Seen by Provider: 08/02/18 10:31 Historian: Patient - History of Present Illness Narrative History of Present Illness (Text): 08/02/18 11:54 23-year-old female presents today status post laparoscopic appendectomy 2 days ago on July 31 presents today with nausea vomiting abdominal pain and no flatulence. Patient states that she signed out AGAINST MEDICAL ADVICE last night. Patient states at home she has been unable to tolerate solids or liquids and has been vomiting. She describes a crampy gas feeling in the lower abdomen Past Medical History - Provider Review Nursing Documentation Reviewed: Yes Primary Care Physician: NO PRIMARY CARE PROVIDER - Travel History Have you recently traveled outside [place] w/in the past 3 mons?: No - Past History Past History: No Previous - Infectious Disease Hx of Infectious Diseases: None - Reproductive Menopause: No - Cardiac Hx Cardiac Disorders: No - Pulmonary Hx Respiratory Disorders: No - Neurological Hx Neurological Disorder: No - HEENT Hx HEENT Disorder: No - Renal Hx Renal Disorder: No - Endocrine/Metabolic Hx Endocrine Disorders: No - Hematological/Oncological Hx Blood Transfusions: No Hx Blood Transfusion Reaction: No - Integumentary Hx Dermatological Disorder: No - Musculoskeletal/Rheumatological Hx Musculoskeletal Disorders: No - Gastrointestinal Hx Gastrointestinal Disorders: No - Genitourinary/Gynecological Hx Genitourinary Disorders: No - Psychiatric Hx Substance Use: No - Surgical History Hx Appendectomy: Yes (07/31/18) - Anesthesia Hx Anesthesia: Yes Hx Anesthesia Reactions: No Hx Malignant Hyperthermia: No - Suicidal Assessment Feels Threatened In Home Enviroment: No Family/Social History - Physician Review Nursing Documentation Reviewed: Yes Family/Social History: Unknown Family HX Smoking Status: Never Smoked Hx Alcohol Use: No Hx Substance Use: No Hx Substance Use Treatment: No Allergies/Home Meds Allergies/Adverse Reactions: Allergies No Known Allergies Allergy (Verified 08/02/18 10:36) Home Medications: Home Meds Medication Instructions Recorded Confirmed No Known Home Med 07/30/18 08/02/18 Review of Systems - Review of Systems Constitutional: absent: Fatigue, Fevers Respiratory: absent: SOB, Cough Cardiovascular: absent: Chest Pain, Palpitations Gastrointestinal: Abdominal Pain, Constipation, Nausea, Vomiting. absent: Diarrhea Genitourinary Female: absent: Dysuria, Frequency, Hematuria Musculoskeletal: absent: Arthralgias, Back Pain, Neck Pain Skin: absent: Rash, Pruritis Neurological: absent: Headache, Dizziness Psychiatric: absent: Anxiety, Depression Physical Exam Vital Signs Reviewed: Yes Vital Signs Temp Pulse Resp BP Pulse Ox 08/02/18 10:29 98.3 F 100 H 19 119/67 95 Temperature: Afebrile Blood Pressure: Normal Pulse: Tachycardic Respiratory Rate: Normal Appearance: Positive for: Well-Appearing, Non-Toxic, Comfortable Pain Distress: None Mental Status: Positive for: Alert and Oriented X 3 - Systems Exam Head: Present: Atraumatic Mouth: Present: Moist Mucous Membranes Neck: Present: Normal Range of Motion Respiratory/Chest: Present: Clear to Auscultation, Good Air Exchange. No: Respiratory Distress, Accessory Muscle Use Cardiovascular: Present: Regular Rate and Rhythm, Normal S1, S2. No: Murmurs Abdomen: Present: Tenderness (+ minimal diffuse abd tenderness). No: Distent ion, Peritoneal Signs, Rebound, Guarding Back: Present: Normal Inspection Upper Extremity: Present: Normal ROM Lower Extremity: Present: Normal ROM Neurological: Present: GCS=15, Speech Normal Skin: Present: Warm, Dry, Normal Color. No: Rashes Psychiatric: Present: Alert, Oriented x 3 Medical Decision Making ED Course and Treatment: 08/02/18 11:59 23yr old female with abd pain, n/v s/p lap appy. signed ama last night. no bowel movement. not pass gas. call placed to dr. travis. pt seen and evaluated by surgical scrub technician dr. lockhart at bedside. cbc; wnl cmp: k:3.3 abd flat/upright xray; FINDINGS: BOWEL: Normal. No obstruction. No free air. BONES: Normal. OTHER FINDINGS: None. IMPRESSION: No active disease. ua; + leukocytes, + moderate bacteria. pt started on rocephin IV for UTI. Patient with continued vomiting in the emergency room. Zofran and Toradol given for pain. Dr. Lockhart discussed the case with Dr. Travis and we will admit the patient observational status due to continued abdominal pain and nausea and vomiting status post laparoscopic appendectomy, UTI. Results and plan discussed in depth with the patient. All aspects of this case were discussed the attending of record. Impression: Abdominal pain, nausea and vomiting status post laparoscopic appendectomy, UTI Admit observational status to [facility] - RAD Interpretation Radiology Orders: 08/02/18 11:32 ABD 2 VIEWS (FLAT/UP OR DECUB) [RAD] Stat - Medication Orders Current Medication Orders: Discontinued Medications Ondansetron HCl (Zofran Inj) 4 mg IVP STAT STA Stop: 08/02/18 11:23 Pantoprazole Sodium (Protonix Inj) 40 mg IVP STAT STA Stop: 08/02/18 11:23 Disposition/Present on Arrival - Present on Arrival Any Indicators Present on Arrival: No History of DVT/PE: No History of Uncontrolled Diabetes: No Urinary Catheter: No History of Decub. Ulcer: No History Surgical Site Infection Following: None - Disposition Have Diagnosis and Disposition been Completed?: Yes Diagnosis: Abdominal pain, UTI (urinary tract infection), Nausea & vomiting Disposition: HOSPITALIZED Disposition Time: 13:30 Patient Plan: Observation Condition: FAIR
[2018-08-02 12:09] LABS: BASO # 0.05 K/mm3 (0.0-2.0); BASO % 0.5 % (0.0-3.0); EOS % 0.2 % (1.5-5.0); LYMPH # 2.6 (1.2-3.4); LYMPH % 24.7 % (22.0-35.0); MEAN CORPUSCULAR HEMOGLOBIN 29.9 pg (25.0-35.0); MEAN CORPUSCULAR HGB CONC 35.1 g/dl (31.0-37.0); MEAN PLATELET VOLUME 10.4 fl (7.0-11.0); MONO % 9.2 % (1.0-6.0); RBC 4.79 10^6/uL (3.5-6.1); WHITE BLOOD COUNT 10.6 10^3/uL (4.5-11.0)
[2018-08-02 12:13] LABS: HEMOGLOBIN 14.3 g/dL (12.0-16.0)
--- NOTE | 2018-08-02 12:18 | CP.PCM.CON ---
History of Present Illness - History of Present Illness History of Present Illness: General surgery consult note for Dr. Tamir Carter, PGY-2 Pt seen/examined at bedside 23F w/PMH sig for appendicitis s/p laparoscopic appendectomy POD#2. Pt reports having diet advanced after surgery, was given beef and started to have nausea/emesis (nb, bilious). Pt reports her nausea was not addressed and she started to have reflux- was treated with pepcid without resolution prior to leaving AMA from hospital. Pt did not take any pain medication at home, continued to have emesis. Pt reports that she is having abdominal discomfort at umbilical incision site after multiple episodes of emesis. Reports belching, urinary hesitancy. Denies F & C, SOB, CP, flatus, BM, other complaints. PMH: hx of depression, R ovarian cyt, hx of reflux PSH: dental surgery, lap appy All: NKDA SH: Denies tobacco use, social ETOH use, marijuana use FH: Grandmother had cancer PMD: denies Review of Systems - Review of Systems All systems: reviewed and no additional remarkable complaints except - Constitutional Constitutional: absent: Chills, Fever - EENT Ears: absent: Dizziness Nose/Mouth/Throat: absent: Sore Throat - Cardiovascular Cardiovascular: absent: Chest Pain - Gastrointestinal Gastrointestinal: Abdominal Pain, Change in Bowel Habits, Constipation, Heartburn, Nausea, Vomiting. absent: Belching, Diarrhea - Genitourinary Genitourinary: Urinary Hesitance - Musculoskeletal Musculoskeletal: absent: Back Pain - Integumentary Integumentary: absent: New Lesions - Neurological Neurological: absent: Weakness Past Patient History - Infectious Disease Hx of Infectious Diseases: None - Past Social History Smoking Status: Never Smoked - CARDIAC Hx Cardiac Disorders: No - PULMONARY Hx Respiratory Disorders: No - NEUROLOGICAL Hx Neurological Disorder: No - HEENT Hx HEENT Problems: No - RENAL Hx Chronic Kidney Disease: No - ENDOCRINE/METABOLIC Hx Endocrine Disorders: No - HEMATOLOGICAL/ONCOLOGICAL Hx Blood Transfusions: No Hx Blood Transfusion Reaction: No - INTEGUMENTARY Hx Dermatological Problems: No - MUSCULOSKELETAL/RHEUMATOLOGICAL Hx Musculoskeletal Disorders: No - GASTROINTESTINAL Hx Gastrointestinal Disorders: No - GENITOURINARY/GYNECOLOGICAL Hx Genitourinary Disorders: No - PSYCHIATRIC Hx Substance Use: No - SURGICAL HISTORY Hx Appendectomy: Yes (07/31/18) - ANESTHESIA Hx Anesthesia: Yes Hx Anesthesia Reactions: No Hx Malignant Hyperthermia: No Meds Allergies/Adverse Reactions: Allergies Allergy/AdvReac Type Severity Reaction Status Date / Time No Known Allergies Allergy Verified 08/02/18 10:36 Physical Exam - Constitutional Appears: Non-toxic, No Acute Distress - Head Exam Head Exam: ATRAUMATIC, NORMAL INSPECTION, NORMOCEPHALIC - Eye Exam Eye Exam: EOMI, Normal appearance - ENT Exam ENT Exam: Mucous Membranes Moist, Normal Exam - Neck Exam Neck exam: Positive for: Full Rom, Normal Inspection - Respiratory Exam Respiratory Exam: NORMAL BREATHING PATTERN - Cardiovascular Exam Cardiovascular Exam: Tachycardia, +S1, +S2 - GI/Abdominal Exam GI & Abdominal Exam: Soft, Tenderness (over surgical site incisions, bandaids in place- clean/dry/intact). absent: Distended, Firm, Guarding, Rebound, Rigid - Extremities Exam Extremities exam: Positive for: normal inspection - Neurological Exam Neurological exam: Alert, CN II-XII Intact, Oriented x3 - Psychiatric Exam Psychiatric exam: Normal Affect, Normal Mood - Skin Skin Exam: Dry, Intact, Normal Color, Warm Results - Vital Signs Recent Vital Signs: Last Vital Signs Temp 98.3 F 08/02/18 10:29 Pulse 100 H 08/02/18 10:29 Resp 19 08/02/18 10:29 BP 119/67 08/02/18 10:29 Pulse Ox 95 08/02/18 10:29 - Labs Result Diagrams: 08/02/18 11:55 Labs: Laboratory Results - last 24 hr 08/02/18 11:55 WBC 10.6 D RBC 4.79 Hgb 14.3 D Hct 40.7 MCV 85.0 MCH 29.9 MCHC 35.1 RDW 13.0 Plt Count 218 MPV 10.4 Neut % (Auto) 65.4 Lymph % (Auto) 24.7 [place] % (Auto) 9.2 H Eos % (Auto) 0.2 L Baso % (Auto) 0.5 Lymph # (Auto) 2.6 [place] # (Auto) 1.0 H Eos # (Auto) 0.0 Baso # (Auto) 0.05 Absolute Neuts (auto) 6.96 H Assessment & Plan - Assessment and Plan (Free Text) Assessment: 23F w/abdominal pain, nausea, emesis POD#2 s/p laparoscopic appendectomy after leaving against medical advance post op Plan: Recommend Anti-emetic Recommend Abdominal flat plate Recommend PPI Recommmend pain control Recommend Further recs pending imaging evaluatin Will NAVA Carter, PGY-2 - Date & Time Date: 08/02/18 Time: 12:15
[2018-08-02 12:20] LABS: PH,URINE 6.5 (4.7-8.0); URINE BILIRUBIN SMALL (NEGATIVE); URINE BLOOD SMALL (NEGATIVE); URINE GLUCOSE (UA) NEGATIVE (NEGATIVE); URINE LEUKOCYTE ESTERASE MODERATE Leu/uL (NEGATIVE); URINE PROTEIN TRACE mg/dL (<30 mg/dL); URINE UROBILINOGEN 0.2 E.U./dL (<1 E.U./dL)
[2018-08-02 12:24] LABS: HCG,QUALITATIVE URINE NEGATIVE (NEGATIVE); URINE APPEARANCE SL CLOUDY (CLEAR); URINE COLOR YELLOW (YELLOW)
[2018-08-02 12:35] LABS: URINE BACTERIA MOD /hpf; URINE EPITHELIAL CELLS MANY /hpf (0-5); URINE RBC 0 - 2 /hpf (0-2)
[2018-08-02 12:43] LABS: ALB/GLOB RATIO 1.3 (1.1-1.8); ALBUMIN 4.8 g/dL (3.0-4.8); ALT/SGPT 19 U/L (7-56); AST/SGOT 34 U/L (14-36); BLOOD UREA NITROGEN 5 mg/dL (7-21); CALCIUM 9.7 mg/dL (8.4-10.5); GFR NON-AFRICAN AMERICAN > 60
--- NOTE | 2018-08-02 13:23 | RAD ---
Date of service: 08/02/2018 HISTORY: abd pain/ s/p lap appy COMPARISON: None available. TECHNIQUE: 1 view obtained. FINDINGS: BOWEL: Normal. No obstruction. No free air. BONES: Normal. OTHER FINDINGS: None. IMPRESSION: No active disease.
[2018-08-02] MEDS ORDERED: cefTRIAXone 1 gm 1 GM/100 ML BAG IVPB STA (13:30)
[2018-08-02] MEDS ORDERED: Bisacodyl 5mg EC Tab PO PRN (13:30)
--- NOTE | 2018-08-02 13:41 | CP.PCM.HP ---
History of Present Illness - History of Present Illness History of Present Illness: General surgery consult note for Dr. Tamir Carter, PGY-2 Pt seen/examined at bedside 23F w/PMH sig for appendicitis s/p laparoscopic appendectomy POD#2. Pt reports having diet advanced after surgery, was given beef and started to have nausea/emesis (nb, bilious). Pt reports her nausea was not addressed and she started to have reflux- was treated with pepcid without resolution prior to leaving AMA from hospital. Pt did not take any pain medication at home, continued to have emesis. Pt reports that she is having abdominal discomfort at umbilical incision site after multiple episodes of emesis. Reports belching, urinary hesitancy. Denies F & C, SOB, CP, flatus, BM, other complaints. PMH: hx of depression, R ovarian cyt, hx of reflux PSH: dental surgery, lap appy All: NKDA SH: Denies tobacco use, social ETOH use, marijuana use FH: Grandmother had cancer PMD: denies Present on Admission - Present on Admission Any Indicators Present on Admission: No History of DVT/PE: No History of Uncontrolled Diabetes: No Urinary Catheter: No Decubitus Ulcer Present: No Review of Systems - Review of Systems All systems: reviewed and no additional remarkable complaints except - Constitutional Constitutional: absent: Chills, Fever, Weakness - EENT Eyes: absent: Change in Vision Nose/Mouth/Throat: absent: Sore Throat - Cardiovascular Cardiovascular: absent: Chest Pain - Respiratory Respiratory: absent: Cough - Gastrointestinal Gastrointestinal: Abdominal Pain, Constipation, Nausea, Vomiting. absent: Hematemesis, Hematochezia, Loose Stools, Melena - Genitourinary Genitourinary: Urinary Hesitance - Integumentary Integumentary: absent: New Lesions - Neurological Neurological: absent: Weakness Past Patient History - Infectious Disease Hx of Infectious Diseases: None - Past Social History Smoking Status: Never Smoked - CARDIAC Hx Cardiac Disorders: No - PULMONARY Hx Respiratory Disorders: No - NEUROLOGICAL Hx Neurological Disorder: No - HEENT Hx HEENT Problems: No - RENAL Hx Chronic Kidney Disease: No - ENDOCRINE/METABOLIC Hx Endocrine Disorders: No - HEMATOLOGICAL/ONCOLOGICAL Hx Blood Transfusions: No Hx Blood Transfusion Reaction: No - INTEGUMENTARY Hx Dermatological Problems: No - MUSCULOSKELETAL/RHEUMATOLOGICAL Hx Musculoskeletal Disorders: No - GASTROINTESTINAL Hx Gastrointestinal Disorders: No - GENITOURINARY/GYNECOLOGICAL Hx Genitourinary Disorders: No - PSYCHIATRIC Hx Substance Use: No - SURGICAL HISTORY Hx Appendectomy: Yes (07/31/18) - ANESTHESIA Hx Anesthesia: Yes Hx Anesthesia Reactions: No Hx Malignant Hyperthermia: No Meds Allergies/Adverse Reactions: Allergies Allergy/AdvReac Type Severity Reaction Status Date / Time No Known Allergies Allergy Verified 08/02/18 10:36 Physical Exam - Constitutional Appears: Non-toxic, No Acute Distress - Head Exam Head Exam: ATRAUMATIC, NORMAL INSPECTION, NORMOCEPHALIC - Eye Exam Eye Exam: EOMI, Normal appearance - ENT Exam ENT Exam: Mucous Membranes Moist, Normal Exam - Neck Exam Neck exam: Positive for: Full Rom, Normal Inspection - Respiratory Exam Respiratory Exam: NORMAL BREATHING PATTERN. absent: Respiratory Distress - Cardiovascular Exam Cardiovascular Exam: REGULAR RHYTHM, +S1, +S2 - GI/Abdominal Exam GI & Abdominal Exam: Soft, Tenderness (over surgical site incisions- dressings in place clean/dry/intact). absent: Distended, Firm, Guarding, Hernia - Extremities Exam Extremities exam: Positive for: normal inspection - Neurological Exam Neurological exam: Alert, CN II-XII Intact, Oriented x3 - Psychiatric Exam Psychiatric exam: Normal Affect, Normal Mood - Skin Skin Exam: Dry, Intact, Normal Color, Warm Results - Vital Signs Recent Vital Signs: Last Vital Signs Temp 98.3 F 08/02/18 13:00 Pulse 88 08/02/18 13:00 Resp 18 08/02/18 13:00 BP 134/89 08/02/18 13:00 Pulse Ox 98 08/02/18 13:00 - Labs Result Diagrams: 08/02/18 11:55 08/02/18 11:55 Labs: Laboratory Results - last 24 hr 08/02/18 08/02/18 08/02/18 11:55 11:55 12:13 WBC 10.6 D RBC 4.79 Hgb 14.3 D Hct 40.7 MCV 85.0 MCH 29.9 MCHC 35.1 RDW 13.0 Plt Count 218 MPV 10.4 Neut % (Auto) 65.4 Lymph % (Auto) 24.7 [place] % (Auto) 9.2 H Eos % (Auto) 0.2 L Baso % (Auto) 0.5 Lymph # (Auto) 2.6 [place] # (Auto) 1.0 H Eos # (Auto) 0.0 Baso # (Auto) 0.05 Absolute Neuts (auto) 6.96 H Sodium 138 Potassium 3.3 L Chloride 98 Carbon Dioxide 26 Anion Gap 17 BUN 5 L Creatinine 0.6 L Est GFR ( Amer) > 60 Est GFR (Non-Af Amer) > 60 Random Glucose 97 Calcium 9.7 Total Bilirubin 0.7 AST 34 ALT 19 Alkaline Phosphatase 90 Total Protein 8.5 H Albumin 4.8 Globulin 3.6 Albumin/Globulin Ratio 1.3 Urine Color Yellow Urine Appearance Sl cloudy Urine pH 6.5 Ur Specific Rosie 1.020 Urine Protein Trace H Urine Glucose (UA) Negative Urine Ketones >=80 Urine Blood Small H Urine Nitrate Negative Urine Bilirubin Small H Urine Urobilinogen 0.2 Ur Leukocyte Esterase Moderate H Urine RBC 0 - 2 Urine WBC 10 - 15 H Ur Epithelial Cells Many H Urine Bacteria Mod Urine HCG, Qual Negative Assessment & Plan - Assessment and Plan (Free Text) Assessment: 23F w/abdominal pain, nausea, emesis POD#2 s/p laparoscopic appendectomy after leaving against medical advance post op Plan: Admit to med surg [id number] Activity as tolerated Soft diet as tolerated Anti-emetic PPI pain control IVF Bowel regimen DVT ppx- SCDs & Lovenox Rocephin for UTI DW Dr. Jono Carter, PGY-2 - Date & Time Date: 08/02/18 Time: 13:45 Decision To Admit - Pt Status Changed To: Hospital Disposition Of: Observation - . Bed Request Type: Med/Surg
[2018-08-02] MEDS ORDERED: Simethicone 80 mg Chewtab PO PRN (13:49)
[2018-08-02 14:28] VITALS: BMI 22.4
[2018-08-02] MEDS: Potassium Chloride 20 MEQ in Dextrose 5%/0.45% NS 1,000 ML IV SCH (14:37)
[2018-08-02] MEDS ORDERED: Potassium Chloride 20 mEq ER Tab PO ONE (17:00)
[2018-08-03] MEDS: Potassium Chloride 20 MEQ in Dextrose 5%/0.45% NS 1,000 ML IV SCH ×3 (01:02→21:11)
[2018-08-03 07:20] LABS: BASO # 0.04 K/mm3 (0.0-2.0); BASO % 0.4 % (0.0-3.0); EOS # 0.1 (0.0-0.7); EOS % 0.7 % (1.5-5.0); HEMOGLOBIN 13.3 g/dL (12.0-16.0); LYMPH # 2.6 (1.2-3.4); LYMPH % 24.4 % (22.0-35.0); MEAN CELL VOLUME 84.5 fl (80.0-105.0); MEAN CORPUSCULAR HGB CONC 34.4 g/dl (31.0-37.0); MEAN PLATELET VOLUME 10.8 fl (7.0-11.0); MONO % 9.9 % (1.0-6.0); RBC 4.58 10^6/uL (3.5-6.1); RED CELL DISTRIBUTION WIDTH 12.9 % (11.5-14.5); WHITE BLOOD COUNT 10.5 10^3/uL (4.5-11.0)
[2018-08-03 07:24] LABS: BLOOD UREA NITROGEN 3 mg/dL (7-21); CALCIUM 9.4 mg/dL (8.4-10.5); GFR NON-AFRICAN AMERICAN > 60
[2018-08-03] MEDS: cefTRIAXone 1 gm 1 GM/100 ML BAG IVPB SCH (09:36)
[2018-08-03] MEDS: Enoxaparin 30 mg Syringe SC SCH (09:37)
[2018-08-03] MEDS ORDERED: Pantoprazole 40 mg EC Tab PO SCH (10:00)
--- NOTE | 2018-08-03 16:44 | CP.PCM.PN ---
Subjective - Date & Time of Evaluation Date of Evaluation: 08/03/18 Time of Evaluation: 07:00 - Subjective Subjective: GENERAL SURGERY PROGRESS NOTE FOR DR. SAUNDERS Patient seen and examined at bedside. She states that her pain is better. She was initially NPO and vomited some phlegm. Then she had a BM today and was advanced to CLD. She is voiding. Nausea better controlled. Objective - Vital Signs/Intake and Output Vital Signs (last 24 hours): Temp Pulse Resp BP Pulse Ox 98.6 F 54 L 18 133/86 98 08/03/18 13:52 08/03/18 13:52 08/03/18 13:52 08/03/18 13:52 08/03/18 13:52 Intake and Output: 08/03/18 08/03/18 06:59 18:59 Intake Total 120 Balance 120 - Medications Medications: Current Medications Acetaminophen (Tylenol 325mg Tab) 650 mg PO Q6H PRN PRN Reason: Fever >100.4 F Last Admin: 08/02/18 14:05 Dose: 650 mg Bisacodyl (Dulcolax) 10 mg PO DAILY PRN PRN Reason: Constipation Enoxaparin Sodium (Lovenox) 30 mg SC DAILY [facility]; Protocol Last Admin: 08/03/18 09:37 Dose: 30 mg Potassium Chloride 20 meq/ (Dextrose/Sodium Chloride) 1,010 mls @ 100 mls/hr IV .Q10H6M AZAEL Last Admin: 08/03/18 12:01 Dose: 100 mls/hr Ceftriaxone Sodium (Rocephin 1 Gram Ivpb) 1 gm in 100 mls @ 100 mls/hr IVPB DAILY [facility]AEL; Protocol Last Admin: 08/03/18 09:36 Dose: 100 mls/hr Ketorolac Tromethamine (Toradol) 15 mg IVP Q6 PRN PRN Reason: Pain, moderate (4-7) Meclizine HCl (Antivert) 25 mg PO DAILY PRN PRN Reason: Nausea/Vomiting Last Admin: 08/03/18 09:10 Dose: 25 mg Pantoprazole Sodium (Protonix Ec Tab) 40 mg PO DAILY AZAEL Last Admin: 08/03/18 09:36 Dose: 40 mg Prochlorperazine (Compazine Tab) 5 mg PO Q8 PRN PRN Reason: Nausea/Vomiting Last Admin: 08/03/18 16:19 Dose: 5 mg Scopolamine (Transderm-Scop) 1 patch TD Q3D AZAEL Last Admin: 08/02/18 17:53 Dose: 1 patch Simethicone (Mylicon Chew Tab) 80 mg PO PCHS PRN PRN Reason: GI distress Last Admin: 08/02/18 16:11 Dose: 80 mg Tramadol HCl (Ultram) 50 mg PO TID PRN PRN Reason: Pain, moderate (4-7) Last Admin: 08/03/18 12:53 Dose: 50 mg - Labs Labs: 08/03/18 06:20 08/03/18 06:20 - Constitutional Appears: Non-toxic, No Acute Distress - Head Exam Head Exam: ATRAUMATIC, NORMAL INSPECTION - Eye Exam Eye Exam: EOMI, Normal appearance - Respiratory Exam Respiratory Exam: NORMAL BREATHING PATTERN. absent: Respiratory Distress - Cardiovascular Exam Cardiovascular Exam: +S1, +S2 - GI/Abdominal Exam GI & Abdominal Exam: Soft, Tenderness (mild kathy-incisional tenderness). absent: Distended, Firm, Guarding, Rigid, Rebound Additional comments: Dermabond in place over incisions - Neurological Exam Neurological Exam: Alert, Awake, Oriented x3 - Psychiatric Exam Psychiatric exam: Normal Affect, Normal Mood - Skin Skin Exam: Dry, Normal Color, Warm Assessment and Plan - Assessment and Plan (Free Text) Assessment: 23yo F w/ abdominal pain and nausea POD#3 s/p laparoscopic appendectomy Plan: - Had BM today, advanced to CLD - Will FU diet tolerance - Continue anti-emetic - Continue pain medication - Strongly encouraged ambulation and IS use - Discussed plan with Dr. Jono Nava PGY-4
[2018-08-03] MEDS ORDERED: Potassium Chloride 10 mEq ER Tab PO ONE (16:48)
[2018-08-03] MEDS ORDERED: Pantoprazole 40 mg EC Tab PO ONE (22:45)
[2018-08-04] MEDS ORDERED: Alum-Mag Hydrox-Simethicone Susp (30 mL) PO ONE (02:45)
[2018-08-04] MEDS: Pantoprazole 40 mg EC Tab PO SCH (05:19)
[2018-08-04] MEDS: Potassium Chloride 20 MEQ in Dextrose 5%/0.45% NS 1,000 ML IV SCH ×2 (06:34→20:10)
--- NOTE | 2018-08-04 08:53 | CP.PCM.PN ---
Subjective - Date & Time of Evaluation Date of Evaluation: 08/04/18 Time of Evaluation: 08:49 - Subjective Subjective: General surgery progress note for Dr. Tamir Carter, PGY-2 Pt seen/examined at bedside with surgical team Pt reports continued nausea, one episode of emesis yesterday. Continues to blech. Had small BM yesterday, denies flatus. Pain mostly controlled. Ambulating. Objective - Vital Signs/Intake and Output Vital Signs (last 24 hours): Temp Pulse Resp BP Pulse Ox 98.2 F 67 18 116/77 97 08/04/18 06:00 08/04/18 06:00 08/04/18 06:00 08/04/18 06:00 08/04/18 06:00 Intake and Output: 08/04/18 08/04/18 06:59 18:59 Intake Total 660 Output Total 3 Balance 657 - Medications Medications: Current Medications Acetaminophen (Tylenol 325mg Tab) 650 mg PO Q6H PRN PRN Reason: Fever >100.4 F Last Admin: 08/02/18 14:05 Dose: 650 mg Bisacodyl (Dulcolax) 10 mg PO DAILY PRN PRN Reason: Constipation Last Admin: 08/04/18 03:57 Dose: 10 mg Enoxaparin Sodium (Lovenox) 30 mg SC DAILY [facility]; Protocol Last Admin: 08/03/18 09:37 Dose: 30 mg Potassium Chloride 20 meq/ (Dextrose/Sodium Chloride) 1,010 mls @ 100 mls/hr IV .Q10H6M AZAEL Last Admin: 08/04/18 06:34 Dose: 100 mls/hr Ceftriaxone Sodium (Rocephin 1 Gram Ivpb) 1 gm in 100 mls @ 100 mls/hr IVPB DAILY [facility]; Protocol Last Admin: 08/03/18 09:36 Dose: 100 mls/hr Ketorolac Tromethamine (Toradol) 15 mg IVP Q6 PRN PRN Reason: Pain, moderate (4-7) Meclizine HCl (Antivert) 25 mg PO DAILY PRN PRN Reason: Nausea/Vomiting Last Admin: 08/03/18 20:17 Dose: 25 mg Pantoprazole Sodium (Protonix Ec Tab) 40 mg PO 0600 AZAEL Last Admin: 08/04/18 05:19 Dose: 40 mg Prochlorperazine (Compazine Tab) 5 mg PO Q8 PRN PRN Reason: Nausea/Vomiting Last Admin: 08/04/18 01:40 Dose: 5 mg Scopolamine (Transderm-Scop) 1 patch TD Q3D AZAEL Last Admin: 08/02/18 17:53 Dose: 1 patch Simethicone (Mylicon Chew Tab) 80 mg PO PCHS PRN PRN Reason: GI distress Last Admin: 08/02/18 16:11 Dose: 80 mg Tramadol HCl (Ultram) 50 mg PO TID PRN PRN Reason: Pain, moderate (4-7) Last Admin: 08/03/18 12:53 Dose: 50 mg - Labs Labs: 08/03/18 06:20 08/03/18 06:20 - Constitutional Appears: Non-toxic, No Acute Distress - Head Exam Head Exam: ATRAUMATIC, NORMAL INSPECTION, NORMOCEPHALIC - Eye Exam Eye Exam: EOMI, Normal appearance - ENT Exam ENT Exam: Mucous Membranes Moist, Normal Exam - Neck Exam Neck Exam: Full ROM, Normal Inspection - Respiratory Exam Respiratory Exam: NORMAL BREATHING PATTERN - Cardiovascular Exam Cardiovascular Exam: REGULAR RHYTHM, +S1, +S2 - GI/Abdominal Exam GI & Abdominal Exam: Soft, Tenderness (mild, over surgical sites). absent: Distended, Firm, Guarding, Rigid - Extremities Exam Extremities Exam: Normal Inspection - Neurological Exam Neurological Exam: Alert, Awake, CN II-XII Intact, Oriented x3 - Psychiatric Exam Psychiatric exam: Normal Affect, Normal Mood - Skin Skin Exam: Dry, Intact, Normal Color, Warm Additional comments: ecchymoses over umbilical surgical site incision Assessment and Plan - Assessment and Plan (Free Text) Assessment: 23yo F w/ abdominal pain and nausea POD#2 s/p laparoscopic appendectomy Plan: Monitor for bowel function Continue CLD Continue anti-emetic Cont pain medications OOBTC Ambulate Encourage IS use Will DW Dr. Jono Carter, PGY-2
[2018-08-04 10:02] LABS: BASO # 0.03 K/mm3 (0.0-2.0); BASO % 0.3 % (0.0-3.0); EOS # 0.1 (0.0-0.7); EOS % 0.9 % (1.5-5.0); HEMOGLOBIN 14.5 g/dL (12.0-16.0); LYMPH # 2.3 (1.2-3.4); LYMPH % 22.3 % (22.0-35.0); MEAN CELL VOLUME 83.7 fl (80.0-105.0); MEAN CORPUSCULAR HEMOGLOBIN 29.5 pg (25.0-35.0); MEAN CORPUSCULAR HGB CONC 35.3 g/dl (31.0-37.0); MEAN PLATELET VOLUME 10.1 fl (7.0-11.0); MONO % 9.9 % (1.0-6.0); RBC 4.91 10^6/uL (3.5-6.1); RED CELL DISTRIBUTION WIDTH 12.8 % (11.5-14.5); WHITE BLOOD COUNT 10.1 10^3/uL (4.5-11.0)
[2018-08-04 10:15] LABS: BLOOD UREA NITROGEN 2 mg/dL (7-21); CALCIUM 9.6 mg/dL (8.4-10.5); GFR NON-AFRICAN AMERICAN > 60
[2018-08-04] MEDS: Enoxaparin 30 mg Syringe SC SCH (10:24)
[2018-08-04] MEDS: cefTRIAXone 1 gm 1 GM/100 ML BAG IVPB SCH (10:25)
[2018-08-04] MEDS ORDERED: Pantoprazole 40 mg EC Tab PO ONE (22:20)
[2018-08-04 22:29] VITALS: RESP 18
[2018-08-05] MEDS: Pantoprazole 40 mg EC Tab PO SCH (06:22)
[2018-08-05 08:11] LABS: BASO # 0.05 K/mm3 (0.0-2.0); BASO % 0.5 % (0.0-3.0); EOS # 0.2 (0.0-0.7); EOS % 1.5 % (1.5-5.0); HEMOGLOBIN 13.9 g/dL (12.0-16.0); LYMPH # 3.1 (1.2-3.4); LYMPH % 30.7 % (22.0-35.0); MEAN CELL VOLUME 84.9 fl (80.0-105.0); MEAN CORPUSCULAR HEMOGLOBIN 28.8 pg (25.0-35.0); MEAN CORPUSCULAR HGB CONC 33.9 g/dl (31.0-37.0); MEAN PLATELET VOLUME 10.8 fl (7.0-11.0); MONO # 0.9 (0.1-0.6); MONO % 8.6 % (1.0-6.0); RBC 4.83 10^6/uL (3.5-6.1); WHITE BLOOD COUNT 10.1 10^3/uL (4.5-11.0)
[2018-08-05 08:26] LABS: ALB/GLOB RATIO 1.3 (1.1-1.8); ALBUMIN 4.2 g/dL (3.0-4.8); ALT/SGPT 17 U/L (7-56); AST/SGOT 23 U/L (14-36); BLOOD UREA NITROGEN 4 mg/dL (7-21); CALCIUM 9.7 mg/dL (8.4-10.5); GFR NON-AFRICAN AMERICAN > 60
[2018-08-05] MEDS: Potassium Chloride 20 MEQ in Dextrose 5%/0.45% NS 1,000 ML IV SCH (10:21)
[2018-08-05] MEDS: Enoxaparin 30 mg Syringe SC SCH (10:21)
--- NOTE | 2018-08-05 12:57 | CP.PCM.DIS ---
Provider - Provider Date of Admission: 08/03/18 20:59 Attending physician: Landon De La Cruz MD Primary care physician: NO PRIMARY CARE PROVIDER Consults: 08/02/18 11:57 General Surgery Consult Stat Comment: Consulting Provider: Landon De La Cruz Consulting Physician: Landon De La Cruz Reason for Consult: abd pain, n/v. s/p lap appy Time Spent in preparation of Discharge (in minutes): 35 Diagnosis - Discharge Diagnosis (1) Status post appendectomy Status: Acute (2) Nausea & vomiting Status: Resolved Hospital Course - Lab Results Lab Results: Micro Results 08/02/18 12:23 Urine,Clean Catch Urine Culture - Final Yeast Species Most Recent Lab Values WBC 10.1 10^3/uL (4.5-11.0) 08/05/18 07:30 RBC 4.83 10^6/uL (3.5-6.1) 08/05/18 07:30 Hgb 13.9 g/dL (12.0-16.0) 08/05/18 07:30 Hct 41.0 % (36.0-48.0) 08/05/18 07:30 MCV 84.9 fl (80.0-105.0) 08/05/18 07:30 MCH 28.8 pg (25.0-35.0) 08/05/18 07:30 MCHC 33.9 g/dl (31.0-37.0) 08/05/18 07:30 RDW 13.0 % (11.5-14.5) 08/05/18 07:30 Plt Count 249 10^3/uL (120.0-450.0) 08/05/18 07:30 MPV 10.8 fl (7.0-11.0) 08/05/18 07:30 Neut % (Auto) 58.7 % (50.0-68.0) 08/05/18 07:30 Lymph % (Auto) 30.7 % (22.0-35.0) 08/05/18 07:30 [place] % (Auto) 8.6 % (1.0-6.0) H 08/05/18 07:30 Eos % (Auto) 1.5 % (1.5-5.0) 08/05/18 07:30 Baso % (Auto) 0.5 % (0.0-3.0) 08/05/18 07:30 Lymph # (Auto) 3.1 (1.2-3.4) 08/05/18 07:30 [place] # (Auto) 0.9 (0.1-0.6) H 08/05/18 07:30 Eos # (Auto) 0.2 (0.0-0.7) 08/05/18 07:30 Baso # (Auto) 0.05 K/mm3 (0.0-2.0) 08/05/18 07:30 Absolute Neuts (auto) 5.92 (1.4-6.5) 08/05/18 07:30 Sodium 137 mmol/L (132-148) 08/05/18 07:30 Potassium 4.0 mmol/L (3.6-5.0) 08/05/18 07:30 Chloride 102 mmol/L (98-107) 08/05/18 07:30 Carbon Dioxide 24 mmol/L (21-33) 08/05/18 07:30 Anion Gap 15 (10-20) 08/05/18 07:30 BUN 4 mg/dL (7-21) L 08/05/18 07:30 Creatinine 0.5 mg/dl (0.7-1.2) L 08/05/18 07:30 Est GFR ( Amer) > 60 08/05/18 07:30 Est GFR (Non-Af Amer) > 60 08/05/18 07:30 Random Glucose 95 mg/dL (70-110) 08/05/18 07:30 Calcium 9.7 mg/dL (8.4-10.5) 08/05/18 07:30 Phosphorus 3.5 mg/dL (2.5-4.5) 08/05/18 07:30 Magnesium 2.2 mg/dL (1.7-2.2) 08/05/18 07:30 Total Bilirubin 0.5 mg/dL (0.2-1.3) 08/05/18 07:30 AST 23 U/L (14-36) 08/05/18 07:30 ALT 17 U/L (7-56) 08/05/18 07:30 Alkaline Phosphatase 77 U/L (38-126) 08/05/18 07:30 Total Protein 7.4 g/dL (5.8-8.3) 08/05/18 07:30 Albumin 4.2 g/dL (3.0-4.8) 08/05/18 07:30 Globulin 3.2 gm/dL 08/05/18 07:30 Albumin/Globulin Ratio 1.3 (1.1-1.8) 08/05/18 07:30 Urine Color Yellow (YELLOW) 08/02/18 12:13 Urine Appearance Sl cloudy (CLEAR) 08/02/18 12:13 Urine pH 6.5 (4.7-8.0) 08/02/18 12:13 Ur Specific [place] 1.020 (1.005-1.035) 08/02/18 12:13 Urine Protein Trace mg/dL (<30 mg/dL) H 08/02/18 12:13 Urine Glucose (UA) Negative mg/dL (NEGATIVE) 08/02/18 12:13 Urine Ketones >=80 mg/dL (NEGATIVE) 08/02/18 12:13 Urine Blood Small (NEGATIVE) H 08/02/18 12:13 Urine Nitrate Negative (NEGATIVE) 08/02/18 12:13 Urine Bilirubin Small (NEGATIVE) H 08/02/18 12:13 Urine Urobilinogen 0.2 E.U./dL (<1 E.U./dL) 08/02/18 12:13 Ur Leukocyte Esterase Moderate Syed/uL (NEGATIVE) H 08/02/18 12:13 Urine RBC 0 - 2 /hpf (0-2) 08/02/18 12:13 Urine WBC 10 - 15 /hpf (0-6) H 08/02/18 12:13 Ur Epithelial Cells Many /hpf (0-5) H 08/02/18 12:13 Urine Bacteria Mod /hpf (NONE) 08/02/18 12:13 Urine HCG, Qual Negative (NEGATIVE) 08/02/18 12:13 - Hospital Course Hospital Course: On admission: 23F w/PMH sig for appendicitis s/p laparoscopic appendectomy POD#2. Pt reports having diet advanced after surgery, was given beef and started to have nausea/emesis (nb, bilious). Pt reports her nausea was not addressed and she started to have reflux- was treated with pepcid without resolution prior to leaving AMA from hospital. Pt did not take any pain medication at home, continued to have emesis. Pt reports that she is having abdominal discomfort at umbilical incision site after multiple episodes of emesis. Reports belching, urinary hesitancy. Denies F & C, SOB, CP, flatus, BM, other complaints. Hospital course: Start on anti-emetic medications, tramadol for pain. Abdominal X-ray was normal. Pt started on antibiotics for UTI noted on UA. Abx were discontinued after urine culture was negative for bacteria and only showed yeast species less than 10,000. On discharge interview, pt reports that she feels better. Nausea gradually improved during hospitalization. Medications were adjusted, and tramadol discontinued as it contributes to her nausea. Denies fever, chills, chest pain, sob, abdominal pain, n/v/d, hematuria, dysuria, urinary frequency. Pt has small, normal BMs, and passing flatus without difficulties. Tolerating diet. Ambulating without difficulties or assistance. This is a summary of the hospital course. Please see EMR for full details. Discharge Exam - Head Exam Head Exam: ATRAUMATIC, NORMAL INSPECTION, NORMOCEPHALIC - Eye Exam Eye Exam: EOMI, Normal appearance - ENT Exam ENT Exam: Mucous Membranes Moist - Respiratory Exam Respiratory Exam: Clear to PA & Lateral. absent: Decreased Breath Sounds, Rales, Rhonchi, Wheezes, Respiratory Distress, Stridor - Cardiovascular Exam Cardiovascular Exam: REGULAR RHYTHM, +S1, +S2. absent: Tachycardia - GI/Abdominal Exam GI & Abdominal Exam: Normal Bowel Sounds, Soft, Tenderness (minimal tenderness at trochar insertion sites). absent: Distended, Firm, Guarding, Rebound, Rigid - Extremities Exam Extremities exam: normal capillary refill Additional comments: No calf tenderness, no pedal edema. 2+ pulses in distal upper and lower extremities. - Neurological Exam Neurological exam: Alert - Psychiatric Exam Psychiatric exam: Normal Affect, Normal Mood - Skin Skin Exam: Dry, Normal Color, Warm Additional comments: ecchymoses over trochar insertion sites, nontender, no signs of infection. Discharge Plan - Discharge Medications Prescriptions: Ondansetron ODT [Zofran ODT] 4 mg PO PRN PRN #4 odt PRN Reason: Nausea/Vomiting - Follow Up Plan Condition: FAIR Disposition: HOME/ ROUTINE Additional Instructions: Pt is medically stable for discharge home as per Dr. De La Cruz. Prescriptions provided: Zofran 4 mg ODT #4 Pt should follow up with Dr. De La Cruz in 1 week after discharge home. Please take motrin/tylenol as needed for pain. Do not take motrin on an empty stomach. Please contact Dr. De La Cruz if symptoms persist. Follow up with your PMD within 2 weeks for management of chronic medical problems.. Or go to your [email or web address] appointment on 08/13/18 at 3 pm. Please call [phone] to reschedule if needed. Please go to nearest ED if symptoms worsen. Instructions explained with pt, who understands and agrees with discharge plan. Referrals: [facility] at [facility] [Outside] PCP,NO [Primary Care Provider] - Landon De La Cruz MD [Staff Provider] -
[2018-08-05 14:27] VITALS: BP 130/91; PULSE 69; TEMP 98.3; O2SAT 99
== END 2018-08-05 17:04 | disposition home or self-care (01) | DRG 252 ==
LOC: ED 10:23 → ERH 13:32 → 5RNO 15:14 → OBSVTOIN 08-03 20:59 → 5RNO 08-04 18:25
PROVIDERS: ADMIT Surgery; ATTEND Surgery
DX: K91.0 Vomiting following gastrointestinal surgery (principal); N39.0 Urinary tract infection, site not specified; G89.18 Other acute postprocedural pain; R10.9 Unspecified abdominal pain; Y83.6 Removal of other organ (partial) (total) as the cause of abnormal reaction of the patient, or of later complication, without mention of misadventure at the time of the procedure; K21.9 Gastro-esophageal reflux disease without esophagitis